=== PATIENT | male | born 1955 | race Caucasian/White ===

== ENCOUNTER 2023-01-22 21:25 | Inpatient (IN) | payer MEDICARE, MEDICAID, SELFPAY ==
[2023-01-22 21:41] LABS: ABG Base Excess 0.4 mmol/L (-2.4-2.3); ABG HCO3 23.6 mmhg (22.0-26.0); ABG Oxygen Saturation 99 % (90-100); ABG PCO2 30.7 mmhg (35.0-45.0); ABG PO2 153.9 mmhg (80-100); ABG TCO2 24.5 mmhg (23-27); Allen's Test Y; Oxygen RA %; Source Right Radial
[2023-01-22 21:55] VITALS: BP 116/87; PULSE 115; RESP 16; TEMP 38.6; O2SAT 100; BMI 16.2
[2023-01-22 22:00] VITALS: BP 116/87; PULSE 118; RESP 28; O2SAT 100
--- NOTE | 2023-01-22 22:08 | HMH.EDFEV ---
Discharge Plan Disposition Chief Complaint: Fever Prescriptions Prescriptions: No Action zinc 100 mg Tablet 220 mg PO HS sennosides [senna] 8.6 mg Tablet 8.06 mg PO DAILY ipratropium-albuterol 0.5 mg-3 mg(2.5 mg base)/3 mL Solution For Nebulization 3 ml INHALATION QID sodium chloride 1 gram Tablet 2 g PO TID metoclopramide HCl 5 mg/5 mL Solution 5 mg PO BID sodium chloride 0.45 % Solution For Nebulization 0.45 ml INHALATION QID budesonide 0.5 mg/2 mL Suspension For Nebulization 0.5 mg INHALATION BID Santyl 250 unit/gram Ointment 250 unit TOPICAL BID bromocriptine 2.5 mg Tablet 2.5 mg PO DAILY Rx Instructions: must administer with a meal/food polyethylene glycol Powder 17 ea miscellaneous DAILY chlorhexidine gluconate 0.12 % Mouthwash 15 ml BUCCAL BID pantoprazole [address] For Susp In Packet 40 mg PO DAILY Calmoseptine 0.44-20.6 % Ointment In Packet 1 applic TOPICAL QID PRN (Reason: skin protection) multivit [id number] 1-dha 18 mg iron- 1 mg-300 mg Capsule 1 cap PO DAILY magnesium oxide 400 mg magnesium Tablet 800 mg PO DAILY acetaminophen 160 mg Powder In Packet 160 mg PO Q6HP PRN (Reason: Pain) Clinical Impressions Clinical Impression: Acute UTI (urinary tract infection), HCAP (healthcare-associated pneumonia), SIRS (systemic inflammatory response syndrome), Acute delirium, Elevated troponin Discharge ED Provider: Shayla (ED)Chad Fever HPI General Chief Complaint: Fever Stated Complaint: Elevated WBC & Potassium Time Seen by Provider: 01/22/23 22:08 Mode of Arrival: EMS Source of Information: Relative, EMS and Medical Record Limitations: Language Barrier Description of Symptoms (Recalled from ER Triage Doc. by RN): Per alf staff, patient was sent to er per family request because pt had an elevated potassium and wbc. Per ems, patient was brought in because family requested evaluation because patient is not making eye contact like usual and thye were worried about his mentation. History of Present Illness HPI Narrative: pt sent from [facility] with altered mental status complaint: fever and weakness Onset (ago): hour(s) Related Data Home Medications Medication Instructions Recorded Confirmed acetaminophen 160 mg oral powder 160 mg PO Q6HP PRN Pain 01/22/23 01/22/23 packet bromocriptine 2.5 mg tablet 2.5 mg PO DAILY parkinsons 01/22/23 01/22/23 budesonide 0.5 mg/2 mL suspension 0.5 mg inhalation BID trach care 01/22/23 01/22/23 for nebulization chlorhexidine gluconate 0.12 % 15 ml buccal BID thrush 01/22/23 01/22/23 mouthwash collagenase clostridium histo. 250 250 unit topical BID Supplement 01/22/23 01/22/23 unit/gram topical ointment (Santyl) ipratropium 0.5 mg-albuterol 3 mg 3 ml inhalation QID shortness of 01/22/23 01/22/23 (2.5 mg base)/3 mL nebulization air soln magnesium oxide 800 mg PO DAILY constipation 01/22/23 01/22/23 menthol 0.44 %-zinc oxide 20.6 % 1 applic topical QID PRN skin 01/22/23 01/22/23 topical ointment in packet protection (Calmoseptine) metoclopramide HCl 5 mg/5 mL oral 5 mg PO BID constipation 01/22/23 01/22/23 solution multivit no.40-iron 18 mg-folate 1 cap PO DAILY Supplement 01/22/23 01/22/23 comb no.1 1 mg-dha 300 mg capsule pantoprazole 40 mg granules 40 mg PO DAILY GERD 01/22/23 01/22/23 delayed-release for susp in packet polyethylene glycol 17 ea miscellaneous DAILY 01/22/23 01/22/23 constipation sennosides 8.6 mg tablet (senna) 8.06 mg PO DAILY constipation 01/22/23 01/22/23 sodium chloride 0.45 % for 0.45 ml inhalation QID duoneb 01/22/23 01/22/23 nebulization sodium chloride 1 gram tablet 2 g PO TID electrolytes 01/22/23 01/22/23 zinc 100 mg tablet 220 mg PO HS wound healing 01/22/23 01/22/23 Allergies Allergy/AdvReac Type Severity Reaction Status Date / Time No Known Allergies Allergy Verifi
--- NOTE | 2023-01-22 22:20 | ECG_ITS ---
APPROVED REPORT Exam: Resting ECG HR:123 bpm ECG Measurements Heart Rate 123 AXES AR 128 P 78 QRSd 80 QRS 268 QT 281 T 73 QTc 354 Conclusion SINUS TACHYCARDIA INDETERMINATE AXIS LEFT POSTERIOR FASCICULAR BLOCK [QRS AXIS > 109, INFERIOR Q] ABNORMAL ECG UNCONFIRMED REPORT Electronically signed by : Paulo Salinas MD 01/23/2023 14:05:50
--- NOTE | 2023-01-22 22:20 | XR_ITS ---
PROCEDURE INFORMATION: Exam: XR Chest Exam date and time: 01/22/2023 10:41 PM Age: 67 years old Clinical indication: Fever; Additional info: Fever, wbc elevated TECHNIQUE: Imaging protocol: Radiologic exam of the chest. Views: 1 view. COMPARISON: No relevant prior studies available. FINDINGS: Tubes, catheters and devices: There is a tracheostomy tube in place in satisfactory position. Lungs: No focal consolidation or mass. Minimal subsegmental atelectasis/scarring left costophrenic angle. Pleural spaces: No pleural effusion or pneumothorax. Heart/Mediastinum: Normal heart size. Bones/joints: No acute osseous abnormality. Mild deformity of the right clavicle consistent with healed fracture. IMPRESSION: 1. No acute intrathoracic abnormality. 2. Tracheostomy tube in satisfactory position.
[2023-01-22 22:26] LABS: Microscopic, Urine URINE MICROSCOPIC (MICROSCOPIC)
[2023-01-22 22:30] VITALS: BP 123/77; PULSE 113; RESP 36; O2SAT 99
[2023-01-22 22:32] LABS: Coronavirus 19, PCR Not Detected (NotDetected); Influenza A, PCR Not Detected (NotDetected); Influenza B, PCR Not Detected (NotDetected)
[2023-01-22 22:32] LABS: Basophils # 0.1 K/mm3 (0-0.2); Basophils % 0.4 % (0.1-2.0); Eosinophils % 0.1 % (0.1-12.0); Hematocrit 34.6 % (42.0-52.0); Hemoglobin 10.7 g/dL (14.1-18.0); Lymphocytes % 7.7 % (10-50); Mean Corpuscular Volume 83.8 fl (80-94); Mean Platelet Volume 7.4 fl (7.4-10.4); Monocytes # 1.1 K/mm3 (0.1-1.0); Monocytes % 4.3 % (1.7-9.3); Neutrophils # 22.7 K/mm3 (1.8-7.8); Neutrophils % 87.5 % (37.0-80.0); Red Blood Count 4.13 M/mm3 (4.60-6.20); Red Cell Distribution Width 18.5 % (11.5-17.5); White Blood Count 25.9 K/mm3 (4.8-10.8)
[2023-01-22 22:33] LABS: Platelet Count 1023 K/mm3 (142-424)
[2023-01-22 22:37] LABS: Appearance,Urine SL CLOUDY (Clear); Bilirubin,Urine Negative (Negative); Blood, Urine 1+ (Negative); Color,Urine YELLOW (Yellow); Glucose,Urine (UA) Negative (Negative); Ketones,Urine Negative (Negative); Leukocyte Esterase,Urine 3+ (Negative); Nitrate,Urine POSITIVE (Negative); PH,Urine 8.5 (5.0-8.5); Protein,Urine TRACE (Negative); Specific Gravity, Urine 1.015 (1.005-1.030); Urobilinogen,Urine 0.2 EU/dl (0.2)
[2023-01-22 22:38] LABS: Lactic Acid 1.5 mmol/L (0.7-2.1)
[2023-01-22 22:39] LABS: Alanine Aminotransferase 36 U/L (12-78); Albumin Level 2.8 g/dl (3.5-5.0); Albumin/Globulin Ratio 0.8 (1.1-1.8); Alkaline Phosphatase 167 U/L (38-126); Anion Gap 6.1 mEq/L (5-15); Aspartate Amino Transferase 41 U/L (17-59); Bilirubin,Total 0.4 mg/dl (0.2-1.3); Blood Urea Nitrogen 27 mg/dl (9-20); Calcium 8.3 mg/dl (8.4-10.2); Carbon Dioxide 26 mmol/L (22.0-30.0); Chloride 110 mmol/L (98-107); Creatine Kinase 48 U/L (55-170); Creatinine Clearance Estimated 59 mL/min (50-200); Estimated Glomerular Filt Rate 113 ml/min (>60); GFR (African American) 137 ML/MIN (>60); Globulin 3.4 g/dL (1.3-3.2); Glucose 136 mg/dl (74-100); Magnesium 2.3 mg/dl (1.6-2.3); Potassium 5.1 mmoL/L (3.5-5.1); Sodium 137 mmol/L (136-145); Total Protein,Serum 6.2 g/dl (6.3-8.2)
--- NOTE | 2023-01-22 22:41 | PC.NURSE ---
Spoke with daughter at bedside. Per daughter, she went to check on her father today and he wasn't making eye contact. daughter states that typically her father will shake his head and respond to her that way but today was unable to maintain eye contact. Daughter states that he had a hemorrhagic stroke in september and was discharged from the hospital to an ltach and was sent to [place] between 2-3 weeks ago.
[2023-01-22 22:44] LABS: C-Reactive Protein 135.1 mg/L (0-4)
[2023-01-22 22:51] LABS: Bacteria,Urine 4+ /lpf; Calcium Oxalate Crystals,Urine Trace /lpf; WBC,Urine 50-100 #/hpf (0-3)
[2023-01-22 22:55] LABS: Procalcitonin 0.402 ng/mL (0.0-2.0); Troponin I 0.26 ng/ml (0.00-0.034)
--- NOTE | 2023-01-22 22:55 | PC.NURSE ---
Dr. Mcguire notified of critical troponin of 0.26
[2023-01-22 22:58] LABS: Erythrocyte Sedimentation Rate 120 mm/hr (0-20)
[2023-01-22 23:00] VITALS: BP 135/83; PULSE 107; RESP 35; O2SAT 100
[2023-01-22 23:45] VITALS: BP 135/83; PULSE 107; RESP 18; TEMP 37.2; O2SAT 100
[2023-01-23] VITALS (13 sets, daily range): BP systolic 101–126; BP diastolic 54–70; PULSE 72–110; RESP 16–24; TEMP 36.4–37.2; O2SAT 96–99; BMI 16.6
--- NOTE | 2023-01-23 00:13 | PC.NURSE ---
pt arrived to floor at this time
--- NOTE | 2023-01-23 01:11 | PC.NURSE ---
coccyx area coccyx coccyx right hip right hip right foot right foot back side
[2023-01-23 02:16] LABS: Troponin I 0.18 ng/ml (0.00-0.034)
--- NOTE | 2023-01-23 04:28 | PC.NURSE ---
pt responsive only to touch, pt is non verbal and will not open eyes, pt will frown when touching forehead and eyebrows, right pupil dilated in which pts daughter states his right eye has been that way r/t eye injury, pt noted to have mottling to lower extremities in knee areas more noticeable, right extremity more than left in which daughter states pt has history of dvt's and concerned pt has clot in that extremity again, pt with tracheostomy and requires suctioning intermittantly for thick white/green secretions noted, trach mask in place with humidified 02 at 8L/35% with 02 sats 97-99%; pt with stage 2 wounds to right hip and coccyx area, both wounds with new pressure dressings applied, see wound pics, f/c to bsd with cloudy urine with sediment noted, g-tube in place to left side of abd with dressing in place, small amount of greenish colored thick exudate noted on dressing around t-tube, pt afebrile this shift, v/s remain stable at this time, telemetry reveals sinus tach. no acute distress at this time. pt turned from back to left side due to pressure area on right hip area, heel protectors in place.
[2023-01-23 07:28] LABS: Eosinophils # 0.1 K/mm3 (0.0-0.4); Eosinophils % 0.7 % (0.1-12.0); Mean Corpuscular Hemoglobin 26.2 pg (27.0-31.2); Monocytes # 0.7 K/mm3 (0.1-1.0); Monocytes % 3.4 % (1.7-9.3)
[2023-01-23 07:30] LABS: Chloride 112 mmol/L (98-107); Potassium 4.3 mmoL/L (3.5-5.1); Sodium 140 mmol/L (136-145)
[2023-01-23 07:33] LABS: Blood Urea Nitrogen 26 mg/dl (9-20); Creatinine Clearance Estimated 60 mL/min (50-200); Estimated Glomerular Filt Rate 135 ml/min (>60); GFR (African American) 163 ML/MIN (>60)
[2023-01-23 07:34] LABS: Anion Gap 8.3 mEq/L (5-15); Calcium 8.4 mg/dl (8.4-10.2); Carbon Dioxide 24 mmol/L (22.0-30.0); Glucose 110 mg/dl (74-100)
[2023-01-23 07:35] LABS: Basophils # 0.1 K/mm3 (0-0.2); Basophils % 0.3 % (0.1-2.0); Hematocrit 31.4 % (42.0-52.0); Lymphocytes # 1.8 K/mm3 (0.7-4.5); Lymphocytes % 8.7 % (10-50); Mean Corpuscular HGB Conc 30.7 g/dL (31.8-35.4); Mean Corpuscular Volume 85.3 fl (80-94); Mean Platelet Volume 7.7 fl (7.4-10.4); Neutrophils # 17.4 K/mm3 (1.8-7.8); Neutrophils % 86.9 % (37.0-80.0); Platelet Count 899 K/mm3 (142-424); Red Blood Count 3.68 M/mm3 (4.60-6.20); Red Cell Distribution Width 18.4 % (11.5-17.5)
[2023-01-23 07:37] LABS: Hemoglobin 9.6 g/dL (14.1-18.0)
[2023-01-23 07:38] LABS: MANUAL DIFFERENTIAL MANUAL DIFFERENTIAL (MANUAL DIFF)
[2023-01-23 07:48] LABS: Lymphocytes % 16 % (10-50); Monocytes % 5 % (2-9); Neutrophils % 79 % (42-76); Total Cells Counted 100
[2023-01-23 07:49] LABS: Anisocytosis 1+; Hypochromasia 1+; Ovalocytes 1+; Platelet Estimate Marked Increase
--- NOTE | 2023-01-23 08:36 | EXP.PHA.CONS ---
Pharmacy Consult Date: 01/23/23 Time: 08:36 Referring provider: DR BOOKER Reason for Consult:: VANCOMYCIN DOSING CONSULT Allergies Allergy/AdvReac Type Severity Reaction Status Date / Time No Known Allergies Allergy Verified 01/22/23 22:04 Home Medications Medication Instructions Recorded Confirmed Type acetaminophen 160 mg oral powder 160 mg PO Q6HP PRN Pain 01/22/23 01/22/23 History packet bromocriptine 2.5 mg tablet 2.5 mg PO DAILY parkinsons 01/22/23 01/22/23 History budesonide 0.5 mg/2 mL suspension 0.5 mg inhalation BID trach care 01/22/23 01/22/23 History for nebulization chlorhexidine gluconate 0.12 % 15 ml buccal BID thrush 01/22/23 01/22/23 History mouthwash collagenase clostridium histo. 250 250 unit topical BID Supplement 01/22/23 01/22/23 History unit/gram topical ointment (Santyl) ipratropium 0.5 mg-albuterol 3 mg 3 ml inhalation QID shortness of 01/22/23 01/22/23 History (2.5 mg base)/3 mL nebulization air soln magnesium oxide 800 mg PO DAILY constipation 01/22/23 01/22/23 History menthol 0.44 %-zinc oxide 20.6 % 1 applic topical QID PRN skin 01/22/23 01/22/23 History topical ointment in packet protection (Calmoseptine) metoclopramide HCl 5 mg/5 mL oral 5 mg PO BID constipation 01/22/23 01/22/23 History solution multivit no.40-iron 18 mg-folate 1 cap PO DAILY Supplement 01/22/23 01/22/23 History comb no.1 1 mg-dha 300 mg capsule pantoprazole 40 mg granules 40 mg PO DAILY GERD 01/22/23 01/22/23 History delayed-release for susp in packet polyethylene glycol 17 ea miscellaneous DAILY 01/22/23 01/22/23 History constipation sennosides 8.6 mg tablet (senna) 8.06 mg PO DAILY constipation 01/22/23 01/22/23 History sodium chloride 0.45 % for 0.45 ml inhalation QID duoneb 01/22/23 01/22/23 History nebulization sodium chloride 1 gram tablet 2 g PO TID electrolytes 01/22/23 01/22/23 History zinc 100 mg tablet 220 mg PO HS wound healing 01/22/23 01/22/23 History New Prescriptions to Start Prescriptions: Height: 1.88 m Weight: 58.786 kg Laboratory Results:: Laboratory Results - last 24 hr 01/22/23 21:30: SARS-CoV-2 (PCR) Not detected, Influenza A Untype (PCR) Not detected, Influenza Type B (PCR) Not detected 01/22/23 21:39: Specimen Source Right radial, O2 % Ra, ABG pH 7.50 H, ABG pCO2 30.7 L, ABG pO2 153.9 H, ABG HCO3 23.6, ABG Total CO2 24.5, ABG O2 Saturation 99, ABG Base Excess 0.4, Ranjan Test Y 01/22/23 21:43: WBC 25.9 H*, RBC 4.13 L, Hgb 10.7 L, Hct 34.6 L, MCV 83.8, MCH 26.0 L, MCHC 31.0 L, RDW 18.5 H, Plt Count 1023 H*, MPV 7.4, Neut % (Auto) 87.5 H, Lymph % (Auto) 7.7 L, Andrews % (Auto) 4.3, Eos % (Auto) 0.1, Baso % (Auto) 0.4, Neut # (Auto) 22.7 H, Lymph # (Auto) 2.0, [place] # (Auto) 1.1 H, Eos # (Auto) 0.0, Baso # (Auto) 0.1, ESR 120 H 01/22/23 21:43: Sodium 137, Potassium 5.1, Chloride 110 H, Carbon Dioxide 26, Anion Gap 6.1, BUN 27 H, Creatinine 0.70, Estimated Creat Clear 59, Estimated GFR 113, Est GFR ( Amer) 137, Glucose 136 H, Calcium 8.3 L, Magnesium 2.3, Total Bilirubin 0.4, AST 41, ALT 36, Alkaline Phosphatase 167 H, Total Creatine Kinase 48 L, Troponin I 0.26 H, C-Reactive Protein 135.1 H, Total Protein 6.2 L, Albumin 2.8 L, Globulin 3.4 H, Albumin/Globulin Ratio 0.8 L, Procalcitonin 0.402 01/22/23 21:43: Lactate 1.5 01/22/23 22:00: Urine Color Yellow, Urine Appearance Sl cloudy, Urine pH 8.5, Ur Specific [place] 1.015, Urine Protein Trace, Urine Glucose (UA) Negative, Urine Ketones Negative, Urine Blood 1+, Urine Nitrate Positive, Urine Bilirubin Negative, Urine Urobilinogen 0.2, Ur Leukocyte Esterase 3+ A, Urine RBC 3-5, Urine WBC 50-100, Calcium Oxalate Crystal Trace, Urine Bacteria 4+ 01/23/23 01:40: Troponin I 0.18 H 01/23/23 05:10: Troponin I 0.10 H 01/23/23 06:53: WBC 20.0 H, RBC 3.68 L, Hgb 9.6 L D, Hct 31.4 L, MCV 85.3, MCH 26.2 L, MCHC 30.7 L, RDW 18.4 H, Plt Count 899 H, MPV 7.7, Neut % (Auto) 86.9 H, Lymph % (Auto) 8.7 L, Andrews % (Auto) 3.4, Eos % (Auto
--- NOTE | 2023-01-23 09:04 | EXP.HP ---
History of Present Illness *Admission Date: 01/22/23 *Reason for visit:: Fever, leukocytosis *History of present illness: 67-year-old male, with several month history of significant medical compromise after an episode of respiratory arrest, cardiac arrest related to polysubstance abuse several months ago. Complicated by multiple rounds of pneumonia, subarachnoid hemorrhage, multiple episodes of sepsis. Ended up in the healthcare system and spent several weeks/months at [facility] and ended up with tracheostomy and G-tube. After several weeks there was transferred to an LTAC unit in [place]. Did not make progress and then was transferred to the [facility] here in [place] for ongoing care. He is originally from [facility] and his daughter is very involved in his care and plans to take him home once he is reached PT goals although this seems to be an extremely long-term issue at this point. He has been a [facility] for a couple of weeks, and has been relatively stable. He has been working with PT and OT. He is minimally responsive but there has been some improvement noted per his daughter in regards to communication. He is able to sit up in a Tara chair for several hours at a time and has some arm flickering movement but otherwise is essentially bedbound and immobile. He developed unusual rash yesterday on his legs and arms, and low-grade temperature. CBC was done showing white count greater than 27,000. This was a change for him. Transported to ER for further evaluation. In ER met sepsis criteria and noted to have milky drainage from his tracheostomy. Admitted for probable healthcare acquired pneumonia and sepsis. This morning he is essentially unresponsive as he was when I examined him at the long term last week [facility] Disclaimer: The information contained in this section may have been updated after the patient was seen, as this information can be updated by other users. Medical History (Updated 01/23/23 @ 09:15 by Paulo Salinas MD) Acute pulmonary edema COPD (chronic obstructive pulmonary disease) Dysphagia Elevation of levels of liver transaminase levels Essential hypertension Hemorrhagic stroke History of embolism Pneumonitis due to inhalation of other solids and liquids Surgical History (Updated 01/23/23 @ 09:15 by Paulo Salinas MD) Postsurgical presence of cerebrospinal fluid drainage device Family History (Updated 01/23/23 @ 01:42 by Vanessa [place], RN) No significant family history Social History (Updated 01/23/23 @ 01:44 by Vanessa Bloom RN) Smoking Status: Former smoker alcohol intake: former current occupational status: disabled Travel in the last 8 weeks: None household members: other housing: assisted living facility marital status: diet: other during the past year weight has: decreased > 10 lbs physical activity: none special shade needs: No agree to transfusion: No Review of Systems Review of Systems Review of systems:: unable to obtain Meds Home Medications and Allergies Home Medications Medication Instructions Recorded Confirmed Type acetaminophen 160 mg oral powder 160 mg PO Q6HP PRN Pain 01/22/23 01/22/23 History packet bromocriptine 2.5 mg tablet 2.5 mg PO DAILY parkinsons 01/22/23 01/22/23 History budesonide 0.5 mg/2 mL suspension 0.5 mg inhalation BID trach care 01/22/23 01/22/23 History for nebulization chlorhexidine gluconate 0.12 % 15 ml buccal BID thrush 01/22/23 01/22/23 History mouthwash collagenase clostridium histo. 250 250 unit topical BID Supplement 01/22/23 01/22/23 History unit/gram topical ointment (Santyl) ipratropium 0.5 mg-albuterol 3 mg 3 ml inhalation QID shortness of 01/22/23 01/22/23 History (2.5 mg base)/3 mL nebulization air soln magnesium oxide 800 mg PO DAILY constipation 01/22/23 01/22/23 History menthol 0.44 %-zinc oxide 20.6 % 1 applic topi
--- NOTE | 2023-01-23 09:10 | PC.NURSE ---
Per assisted report, pt's tube feed order is Nutren 2.0 @ 45mls/hr continuous with 235 ml flushes q4hrs
--- NOTE | 2023-01-23 09:22 | DIET.NUTRFU ---
RD consulted for tubefeeding order. Patient is from [facility], he is NPO with TF provided for 100% nutrition. At [facility] he is receiving Nutren 2.0 at 45ml/hr ATC with 235ml flush Q4H. He has skin breakdown, would benefit from Prostat AWC TID for would healing. Will start Nutren 2.0 at 20ml/hr and increase to goal rate of 45ml as tolerated. Start flush of 50ml TID will receiving IVF, once IVF discontinued will increase flush to 225ml every 4 hours. When called [facility] was unable to get a wt hx, he does have low BMI, skin breakdown will review risk of PCM with provider who is more familiar with patient
--- NOTE | 2023-01-23 10:51 | P.CONPHA_ITS ---
Pharmacy Intervention Comments: MEDICATION RECONCILIATION COMPLETE USING MAR FROM [facility].
--- NOTE | 2023-01-23 10:51 | HMH.PHAINT1 ---
Pharmacy Intervention Comments: MEDICATION RECONCILIATION COMPLETE USING MAR FROM [facility].
--- NOTE | 2023-01-23 18:22 | PC.NURSE ---
[facility] called and asked for update on pt. Pt is currently resting on (L) side. Turned Q2H. Responds to questions with blinking and nodding head. Trach collar with O2 @ 5L 28%. F/C draining to bedside with purulent urine. Drainage bag changed. Pt is sinus to sinus tach on telemetry. DSGs to coccyx and (R) hip in place. Family at bedside.
[2023-01-23 18:44] LABS: POC Glucose,Bedside 86 (70-110)
[2023-01-24] VITALS (9 sets, daily range): BP systolic 116–145; BP diastolic 61–79; PULSE 73–90; RESP 16–20; TEMP 36.4–36.8; O2SAT 96–100; BMI 16.9
[2023-01-24 06:52] LABS: Chloride 114 mmol/L (98-107); Sodium 142 mmol/L (136-145)
[2023-01-24 06:53] LABS: Potassium 3.4 mmoL/L (3.5-5.1)
[2023-01-24 06:55] LABS: Basophils # 0.1 K/mm3 (0-0.2); Blood Urea Nitrogen 20 mg/dl (9-20); Creatinine Clearance Estimated 62 mL/min (50-200); Eosinophils # 0.2 K/mm3 (0.0-0.4); Estimated Glomerular Filt Rate 215 ml/min (>60); GFR (African American) 260 ML/MIN (>60); Monocytes # 0.4 K/mm3 (0.1-1.0)
[2023-01-24 06:56] LABS: Anion Gap 7.4 mEq/L (5-15); Calcium 8.2 mg/dl (8.4-10.2); Carbon Dioxide 24 mmol/L (22.0-30.0); Glucose 78 mg/dl (74-100)
[2023-01-24 07:03] LABS: Basophils % 0.6 % (0.1-2.0); Eosinophils % 2.2 % (0.1-12.0); Hematocrit 27.9 % (42.0-52.0); Lymphocytes # 1.9 K/mm3 (0.7-4.5); Lymphocytes % 20.2 % (10-50); Mean Corpuscular HGB Conc 29.5 g/dL (31.8-35.4); Mean Corpuscular Hemoglobin 25.9 pg (27.0-31.2); Mean Corpuscular Volume 87.5 fl (80-94); Mean Platelet Volume 7.4 fl (7.4-10.4); Monocytes % 4.1 % (1.7-9.3); Neutrophils # 6.8 K/mm3 (1.8-7.8); Neutrophils % 72.9 % (37.0-80.0); Platelet Count 826 K/mm3 (142-424); Red Blood Count 3.19 M/mm3 (4.60-6.20); Red Cell Distribution Width 18.2 % (11.5-17.5); White Blood Count 9.4 K/mm3 (4.8-10.8)
[2023-01-24 07:06] LABS: Hemoglobin 8.2 g/dL (14.1-18.0)
--- NOTE | 2023-01-24 07:35 | PC.NURSE ---
Trach care performed at this time.
--- NOTE | 2023-01-24 08:26 | SW/DCPLANNER ---
Addendum entered by Iesha Champion 01/31/23 09:23: Patient will return to [facility] today: I have updated Liliana. Patient will require a COVID swab prior to returning. Addendum entered by Iesha Champion 01/27/23 10:54: Updated patient information has been faxed to Liliana long/ [facility]. Addendum entered by [facility] 01/25/23 11:48: Caril lnog/ [facility] stated that she has reviewed patient information and does not meet criteria for their facility at this time. I have updated daughter and she is fine with returning to [facility] once medically stable for discharge. Addendum entered by [facility] 01/25/23 08:21: Patient's daughter (Bri) has expressed an interest in [place] for this patient. I will fax patient information to Carli long/ [facility] to review. Daughter also stated that if [facility] is unable to accept patient she would prefer to return to [facility]. Discharge date is unknown at this time. Original Note: This patient currently resides at [facility] level of care. I have followed up with Liliana at [facility] and faxed updated patient information at this time.
--- NOTE | 2023-01-24 08:27 | XR_ITS ---
FINAL REPORT CLINICAL HISTORY: Persistent cough FINDINGS: A portable view of the chest was obtained. Comparison is made to a prior exam dated 01/22/2023. There is been no change in the tracheostomy tube. Cardiac and mediastinal silhouettes are within normal limits. There are changes of emphysema. There may be mild right perihilar opacity. The lungs are otherwise clear. There is no pleural effusion or pneumothorax. IMPRESSION: May be mild right perihilar opacity, lungs are otherwise clear. Recommend upright PA and lateral radiographs when patient is able to tolerate. Reviewed, Interpreted and Dictated by Angelique Watson MD Transcribed by Zeenat Pino Authenticated and [facility]
--- NOTE | 2023-01-24 08:29 | EXP.ACUTE.PN ---
Subjective *Date: 01/24/23 *Time: 08:29 Interval history: Patient is remained stable overnight. His white blood cell count has improved nicely. Tube feeds remain off. Microbiology cultures reviewed, gram-negative rods from urine and tracheal culture. Medical Exam Vital signs and Labs for Last 24 Hours: Vital Signs Temp Pulse Pulse Resp BP Pulse Ox FiO2 01/24/23 07:36 98.3 F 73 18 131/70 98 01/24/23 04:00 84 01/24/23 04:00 97.6 F 82 16 116/61 99 01/24/23 00:00 90 01/23/23 20:00 80 01/24/23 00:00 87 16 127/64 100 01/23/23 23:40 28 01/23/23 19:45 97.9 F 81 16 103/54 L 98 01/23/23 15:06 97.6 F 82 16 107/56 L 99 01/23/23 12:00 80 01/23/23 12:57 96 28 01/23/23 10:53 98.2 F 96 H 17 119/70 98 Intake and Output 01/23/23 01/24/23 01/24/23 19:59 03:59 11:59 Intake Total 0 / 0 Output Total 525 / 1325 300 / 1325 500 / 1325 Balance -525 / -1325 -300 / -1325 -500 / -1325 Intake: Intake, Oral Amount 0 / 0 Output: Output, Urine Amount 400 / 400 Output, Urine Amount (Catheter) 125 / 925 300 / 925 500 / 925 Gunter 125 / 925 300 / 925 500 / 925 Other: Number of Unmeasured Voids 0 Weight 132 lb 9 oz Patient Weight 01/24/23 11:59 Weight 132 lb 9 oz Laboratory Results - last 24 hr 01/22/23 22:00: Urine Color Yellow, Urine Appearance Sl cloudy, Urine pH 8.5, Ur Specific [place] 1.015, Urine Protein Trace, Urine Glucose (UA) Negative, Urine Ketones Negative, Urine Blood 1+, Urine Nitrate Positive, Urine Bilirubin Negative, Urine Urobilinogen 0.2, Ur Leukocyte Esterase 3+ A, Urine RBC 3-5, Urine WBC 50-100, Calcium Oxalate Crystal Trace, Urine Bacteria 4+ 01/23/23 18:36: POC Glucose 86 01/24/23 06:20: WBC 9.4 D, RBC 3.19 L, Hgb 8.2 L D, Hct 27.9 L, MCV 87.5, MCH 25.9 L, MCHC 29.5 L, RDW 18.2 H, Plt Count 826 H, MPV 7.4, Neut % (Auto) 72.9, Lymph % (Auto) 20.2, [place] % (Auto) 4.1, Eos % (Auto) 2.2, Baso % (Auto) 0.6, Neut # (Auto) 6.8, Lymph # (Auto) 1.9, [place] # (Auto) 0.4, Eos # (Auto) 0.2, Baso # (Auto) 0.1 01/24/23 06:20: Sodium 142, Potassium 3.4 L D, Chloride 114 H, Carbon Dioxide 24, Anion Gap 7.4, BUN 20, Creatinine 0.40 L D, Estimated Creat Clear 62, Estimated GFR 215, Est GFR ( Amer) 260 D, Glucose 78 D, Calcium 8.2 L I & O for Labs for Last 24 Hours: Intake & Output 01/21/23 01/22/23 01/23/23 01/24/23 11:59 11:59 11:59 11:59 Intake Total 711 / 711 0 / 0 Output Total 1225 / 1225 1325 / 1325 Balance -514 / -514 -1325 / -1325 Weight 129 lb 6.581 oz 132 lb 9 oz Microbiology Reports for the Last 24 Hours: Microbiology 01/22/23 22:00 Sputum - Endotracheal Tube Aspirate Gram Stain - Final 01/22/23 22:00 Sputum - Endotracheal Tube Aspirate Sputum Culture - Preliminary Gram Negative Rods 01/22/23 22:00 Urine,Catheterized Urine Culture - Preliminary Gram Negative Rods Comment:: Patient is responsive to verbal stimuli from nurses, will squeeze hand, wiggle toes and shakes his head no when asked if he is in pain. Does not respond to sternal rub. Pupillary reactivity remains the same as on exam on admission. Rhonchi in chest. Abdomen soft, G-tube site looks good, trach site looks pretty good with minimal drainage. Extremity exam unchanged. Assessment and Plan *Assessment and plan (1) SIRS (systemic inflammatory response syndrome): Status: Acute Category: Medical Code(s): R65.10 - Systemic inflammatory response syndrome (SIRS) of non-infectious origin without acute organ dysfunction (2) HCAP (healthcare-associated pneumonia): Status: Acute Category: Medical Code(s): J18.9 - Pneumonia, unspecified organism (3) Elevated troponin: Status: Acute Category: Medical Code(s): R77.8 - Other specified abnormalities of plasma proteins (4) Hemorrhagic stroke:
--- NOTE | 2023-01-24 09:01 | CA_ITS ---
APPROVED REPORT EXAM: Comprehensive 2D, Doppler, and color-flow Echocardiogram Oil Burner Repairer: ROLAND Haji, RVS Ht: 6 ft 2 in Wt: 132lbs BSA: 1.82 BP: 126/67 mmHg Indications: HAP, Sepsis, Cardiac arrest-1 month ago-drug overdose, tracheostomy, ex-smoker Echo Enhancing Agent Comments: Extremely limited due to patient factors 2D Dimensions Aortic Root 3.23 cm LA Volume 34.20 mL Left Atrium 2.68 cm LA Volume Index 18.80 mL/m2 (M/F) 16-34 LVOT 2.11 cm (M/F) 1.5-2.5 M-Mode Dimensions RVDd 2.22 cm (0.9-2.6) LA Diam 3.19 cm (1.9-4.0) LVDd 4.10 cm (3.5-5.7) Ao Diam 3.48 cm (2.0-3.7) LVDs 2.28 cm (3.5-5.7) IVSd 0.73 cm (0.6-1.1) PWd 0.97 cm (0.6-1.1) EF (Teich) 76.10% EPSs 0.16 cm FS 44.40% EDV (Teich) 74.20 mL ESV (Teich) 17.70 mL LV Diastology E Decel Time 213.00 (160-240 msec) E/A Ratio 0.99 MED E' 7.80 (< 7 cm/sec) MED A' 12.60 cm/s E'/MED E' Ratio 10.40 (>14) LAT E' 7.70 (<10 cm/sec) LAT A' 11.00 cm/s E/LAT E' Ratio 10.53 (>14) Aortic Valve LVOT Max 76.00 (70-110 cm/s) LVOT VTI 15.98 cm AoV Peak Gene. 107.00 (50-130 cm/s) AO Peak GR. 4.60 mmHg AO Mean GR. 2.30 (<5 mmHg) AO VTI 20.81 (18-25 cm) EZIO (VTI) 2.69 (2.5-4.5 cm2) Mitral Valve MV A Velocity 82.00 (40-130 cm/s) E/A Ratio 0.99 MV Decel. Time 213.00 (160-240 ms) MV Mean Gr. 1.40 (<2mmHg) MV PHT 43.00 ms Pulmonary Valve PV Peak Velocity 91.00 (50-150 cm/s) NJ End VMAX 186.00 cm/s Tricuspid Valve TR P. Velocity 246.00 cm/s RAP Estimate 10.00 mmHg RVSP 34.30 mmHg Left Ventricle Left atrium is mildly enlarged, left ventricle is normal size, mild concentric left ventricular hypertrophy, estimated ejection fraction 50% with no regional wall motion abnormality, grade 1 diastolic dysfunction seen without tissue Doppler evidence of raise left atrial pressure. Right Ventricle Right-sided chambers are not well visualized. Aortic Valve Aortic valve is minimally thickened and fibrosed there is no aortic stenosis aortic insufficiency. Mitral Valve Mitral valve is grossly normal, there is trace mitral regurgitation. Tricuspid Valve Tricuspid valve grossly normal, there is trace tricuspid regurgitation, tricuspid regurgitation jet velocity is inadequate for calculation of the right ventricular systolic pressure. Pulmonic Valve Pulmonic valve is poorly visualized. Great Vessels Aortic root is normal size. Inferior vena cava is poorly visualized. Pericardium No significant pericardial effusion noted. Conclusion 1. Technically difficult study. Mildly enlarged left atrium, normal left ventricular size, estimated ejection fraction 55% with no regional wall motion abnormality, grade 1 diastolic dysfunction seen without tissue Doppler evidence of raise left atrial pressure. 2. Trace mitral and tricuspid regurgitation. 3. No significant pericardial effusion noted. 4. Inferior vena cava is poorly visualized. Electronically signed by : Magen Maria MD 01/24/2023 12:54:35
--- NOTE | 2023-01-24 11:16 | HMH.PTWOUND ---
Rehab Inpt Wound Evaluation Rehab IP Wound Evaluation Start: 01/23/23 08:47 Freq: DAILY Status: Active Protocol: Document 01/24/23 09:30 PHORNE (Rec: 01/24/23 11:16 PHORNE [id number]) Rehab PT Wound Assessment Subjective Subjective 67 yowm adm to [facility] [place] [facility] [place] with HAP and sepsis. He presents at baseline which limited at best. He appears alert to person, but is unable to speak at t his time. Has trach and PEG with tube feeds, requires dependen t assist with all mobility and has limited command following. He presents with sacral wound that was present on admission with several other small areas of concern noted. Wound Sacrum Wound Type Pressure Ulcer Is This a Chronic Wound Yes Wound Staging Unstageable Query Text:Stage I - Unbroken, red skin, no blanching. Stage II - Skin broken, superficial skin loss involving epidermis alone or also dermis. Partial loss of skin layers. Stage III - Pressure area involves epidermis, dermis and subcutaneous tissue, full thickness skin loss. Stage IV - Pressure area involves epidermis, subcutaneous tissue, bone and other supportive tissue. Full thickness skin loss with extensive destruction of underlying tissue and structures. Wound Length (cm) 5.0 Wound Width (cm) 8.5 Wound Depth (cm) 0.1 Wound Bed Appearance [place],Yellow Percentage Granulated (%) 80 Percentage of Slough (%) 20 Wound Margins Description Well Defined Surrounding Tissue Appearance [place],Purple Wound Drainage Description Serous,Purulent Drainage Amount Small Drainage Odor No Odor Wound Topical Solution/Irrigant Saline Irrigant Primary Dressing Composite Comment optifoam gentle sacrum Wound Debridement Method Mechanical Wound Debridement Amount of Tissue Minimal Removed Dressing Change Patient Tolerance Tolerated Well Plan/Recommendation Comment Continue [facility] [place] dressing changes as above with appropriate foam dressing. Mild amts of slough appear to be autolytically
--- NOTE | 2023-01-24 14:53 | DIET.NUTRFU ---
Addendum entered by Joi Alarcon RD, LD 01/24/23 15:44: reglan, protonix and zofran are also being provided Original Note: Tubefeeding was started and 94ml provided, nursing checked residuals 14:55 at 50ml. TF now on hold. Will also put prostat on hold. Placement was checked and will reattempt TF later today. He continues on IVF to meet hydration needs.
--- NOTE | 2023-01-24 16:53 | PC.NURSE ---
PT IS RESTING IN BED. ALERT TO SELF ONLY. PT IS NONVERBAL HOWEVER WILL FOLLOW SIMPLE COMMANDS. TUBE FEEDINGS STARTED THIS SHIFT AT 1000. NUTREN 20 ML/HR TO START. PT HAD 50 ML'S RESIDUAL AT 1430. TUBE FEEDINGS STOPPED. PT STILL HAD 40 ML'S RESIDUAL AT 1600. WILL RECHECK RESIDUAL AT 1800. TRACH HAS BEEN SUCTIONED NEEDED THIS SHIFT. TURNED AND REPOSITIONED IN BED FREQUENTLY. ORAL CARE PROVIDED. PT HAD A SMALL BOWEL MOVEMENT. NEW DRESSING APPLIED TO COCCY[employer]. WILL CONTINUE TO MONITOR.
[2023-01-25] VITALS (9 sets, daily range): BP systolic 123–198; BP diastolic 67–90; PULSE 72–122; RESP 16–36; TEMP 36.4–38.7; O2SAT 93–98; BMI 17.1
--- NOTE | 2023-01-25 06:31 | PC.NURSE ---
PT HAS NOT SLEPT MUCH THIS SHIFT. PT REMAINS IN 5L AND IS TOLERATING THAT WELL. PT HAS NOT HAD VERY GOOD URINE OUTPUT THIS SHIFT WITH ABOUT 150ML'S OUT. PT'S BP HAS CONTINUED TO RISE THIS SHIFT WELL HIS HEART RATE. MD DOPE EDGER AWARE. NEW ORDERS RECIEVED AND CARRIED OUT. PT'S GASTRIC RESIDUALS HAVE BEEN BETWEEN 0-30 ML THIS SHIFT. DENIES ANY PAIN AT THIS TIME.
[2023-01-25 07:37] LABS: Basophils % 0.3 % (0.1-2.0); Eosinophils # 0.1 K/mm3 (0.0-0.4); Eosinophils % 0.4 % (0.1-12.0); Lymphocytes # 1.5 K/mm3 (0.7-4.5); Neutrophils % 83.2 % (37.0-80.0)
[2023-01-25 07:39] LABS: Chloride 116 mmol/L (98-107); Potassium 3.1 mmoL/L (3.5-5.1); Sodium 145 mmol/L (136-145); Vancomycin,Peak 36.6 ug/ml (11-39)
--- NOTE | 2023-01-25 07:40 | EXP.ACUTE.PN ---
Subjective *Date: 01/25/23 *Time: 07:40 Interval history: Several developments overnight and yesterday. Yesterday patient was able to demonstrate much more communication that I have seen him before, with eye blinking, head shaking and response to questions and moving his toes and hands to command. He denied pain. Unfortunately tube feedings were not able to be continued because of high residuals and his gastric residual checks. Overnight he has had some documented high heart rates and his blood pressure has been well up and he had a low-grade fever. This morning he is slightly less responsive but his eyes are open and he does blink with commands and seems to acknowledge people in the room by moving his eyes. He does not follow commands for me this morning Cultures have been reviewed showing Pseudomonas in urine and sputum, gram-negative rods in blood which have yet to be identified. Medical Exam Vital signs and Labs for Last 24 Hours: Vital Signs Temp Pulse Pulse Resp BP Pulse Ox FiO2 01/25/23 04:00 120 H 01/25/23 04:00 99.1 F 122 H 36 H 198/90 H 93 L 01/24/23 23:00 96 28 01/25/23 00:00 110 H 01/24/23 20:00 80 01/25/23 00:00 98.5 F 118 H 16 177/85 H 94 L 01/24/23 20:00 98.0 F 82 18 143/79 H 97 01/24/23 15:52 97.9 F 82 20 133/79 01/24/23 12:00 90 01/24/23 11:15 97.9 F 90 18 145/78 H 98 01/24/23 08:00 83 Intake and Output 01/24/23 01/25/23 01/25/23 19:59 03:59 11:59 Intake Total 0 / 0 Output Total 0 / 100 0 / 100 100 / 100 Balance 0 / -100 0 / -100 -100 / -100 Intake: Intake, Oral Amount 0 / 0 Output: Output, Urine Amount 0 / 100 0 / 100 100 / 100 Other: Number of Unmeasured Voids 1 0 1 Number of Bowel Movements 1 Weight 133 lb 3 oz Patient Weight 01/25/23 11:59 Weight 133 lb 3 oz Laboratory Results - last 24 hr 01/22/23 22:00: Urine Color Yellow, Urine Appearance Sl cloudy, Urine pH 8.5, Ur Specific [place] 1.015, Urine Protein Trace, Urine Glucose (UA) Negative, Urine Ketones Negative, Urine Blood 1+, Urine Nitrate Positive, Urine Bilirubin Negative, Urine Urobilinogen 0.2, Ur Leukocyte Esterase 3+ A, Urine RBC 3-5, Urine WBC 50-100, Calcium Oxalate Crystal Trace, Urine Bacteria 4+ 01/25/23 02:05: Vancomycin Trough 12.0 H I & O for Labs for Last 24 Hours: Intake & Output 01/22/23 01/23/23 01/24/23 01/25/23 11:59 11:59 11:59 11:59 Intake Total 711 / 711 0 / 0 0 / 0 Output Total 1225 / 1225 2525 / 2525 100 / 100 Balance -514 / -514 -2525 / -2525 -100 / -100 Weight 129 lb 6.581 oz 132 lb 9 oz 133 lb 3 oz Microbiology Reports for the Last 24 Hours: Microbiology 01/22/23 21:43 Blood Blood Culture - Preliminary Gram Negative Rods 01/22/23 22:00 Urine,Catheterized Urine Culture - Final Pseudomonas aeruginosa 01/22/23 22:00 Sputum - Endotracheal Tube Aspirate Gram Stain - Final 01/22/23 22:00 Sputum - Endotracheal Tube Aspirate Sputum Culture - Final Pseudomonas aeruginosa 01/22/23 21:43 Blood Blood Culture - Preliminary NO GROWTH AFTER 48 HOURS Comment:: Please see above notes are he has neurologic status. His lungs have reduced air movement but at baseline. Heart rate is regular. At the time of my exam is in the low 80s. His abdomen is slightly full, G-tube site looks good. Extremities are unchanged. Assessment and Plan *Assessment and plan (1) SIRS (systemic inflammatory response syndrome): Status: Acute Category: Medical Code(s): R65.10 - Systemic inflammatory response syndrome (SIRS) of non-infectious origin without acute organ dysfunction (2) HCAP (healthcare-associated pneumonia): Status: Acute Category: Medical Code(s): J18.9 - Pneumonia, unspecified organism (3) Elevated troponin: Status:
[2023-01-25 07:41] LABS: Basophils # 0.1 K/mm3 (0-0.2); Lymphocytes % 11.3 % (10-50); Mean Corpuscular HGB Conc 31.4 g/dL (31.8-35.4); Mean Corpuscular Hemoglobin 26.5 pg (27.0-31.2); Mean Corpuscular Volume 84.3 fl (80-94); Mean Platelet Volume 8.1 fl (7.4-10.4); Monocytes # 0.6 K/mm3 (0.1-1.0); Monocytes % 4.7 % (1.7-9.3); Neutrophils # 11.2 K/mm3 (1.8-7.8); Platelet Count 927 K/mm3 (142-424); Red Blood Count 3.56 M/mm3 (4.60-6.20); White Blood Count 13.5 K/mm3 (4.8-10.8)
[2023-01-25 07:42] LABS: Anion Gap 13.1 mEq/L (5-15); Blood Urea Nitrogen 24 mg/dl (9-20); Calcium 8.5 mg/dl (8.4-10.2); Carbon Dioxide 19 mmol/L (22.0-30.0); Creatinine Clearance Estimated 62 mL/min (50-200); Estimated Glomerular Filt Rate 113 ml/min (>60); GFR (African American) 137 ML/MIN (>60); Glucose 81 mg/dl (74-100); Hemoglobin 9.4 g/dL (14.1-18.0)
--- NOTE | 2023-01-25 07:57 | DIET.NUTRFU ---
Spoke to nursing this morning, tubefeeding still on hold. Had noted residuals last night at 30ml. Prostat was given last night, now on hold. Reglan increased and IV bolus provided. Provider wanted to continue to hold TF for now, patient is non-verbal. Attempted to ask patient if he was experiencing nausea, previous was able to respond by knotting head but did not today. He is also on zofran PRN. Labs reviewed and ABT tx continued. BM noted yesterday. Will continue to monitor
--- NOTE | 2023-01-25 09:22 | EXP.PHA.CONS ---
Pharmacy Consult Date: 01/25/23 Time: 09:22 Referring provider: DR BOOKER Reason for Consult:: VANCOMYCIN PEAK AND TROUGH LEVEL OBTAINED Allergies Allergy/AdvReac Type Severity Reaction Status Date / Time No Known Allergies Allergy Verified 01/22/23 22:04 Home Medications Medication Instructions Recorded Confirmed Type acetaminophen 160 mg oral powder 160 mg PO Q6HP PRN MILD TO 01/22/23 01/22/23 History packet MODERATE PAIN bromocriptine 2.5 mg tablet 2.5 mg PO DAILY parkinsons 01/22/23 01/22/23 History budesonide 0.5 mg/2 mL suspension 0.5 mg inhalation BID Breathing 01/22/23 01/22/23 History for nebulization problems chlorhexidine gluconate 0.12 % 15 ml PO BID thrush 01/22/23 01/23/23 History mouthwash collagenase clostridium histo. 250 0 unit topical BID wound care 01/22/23 01/23/23 History unit/gram topical ointment (Santyl) ipratropium 0.5 mg-albuterol 3 mg 3 ml inhalation Q6HP PRN breathing 01/22/23 01/23/23 History (2.5 mg base)/3 mL nebulization problems soln magnesium oxide 800 mg PO DAILY Supplement 01/22/23 01/22/23 History menthol 0.44 %-zinc oxide 20.6 % 1 applic topical TID wound care 01/22/23 01/23/23 History topical ointment in packet (Calmoseptine) metoclopramide HCl 5 mg/5 mL oral 5 mg PO BID constipation 01/22/23 01/22/23 History solution pantoprazole 40 mg granules 40 mg PO DAILY acid reflux 01/22/23 01/22/23 History delayed-release for susp in packet sennosides 8.6 mg tablet (senna) 8.6 mg PO DAILY constipation 01/22/23 01/23/23 History sodium chloride 1 gram tablet 2 g PO TID electrolytes 01/22/23 01/22/23 History geriatric multivitamin-min 1 tab PO DAILY Supplement 01/23/23 01/23/23 History ipratropium 0.5 mg-albuterol 3 mg 3 ml inhalation TID Breathing 01/23/23 01/23/23 History (2.5 mg base)/3 mL nebulization problems soln polyethylene glycol 3350 17 gram 17 g PO DAILY constipation 01/23/23 01/23/23 History oral powder packet (Miralax) scopolamine base 1 mg over 3 days 1 patch transdermal Q72H secretions 01/23/23 01/23/23 History transdermal patch (Transderm-Scop) sodium chloride 3 % for 4 ml inhalation BID Breathing 01/23/23 01/23/23 History nebulization problems zinc sulfate 220 mg capsule 220 mg PO HS wound care 01/23/23 01/23/23 History New Prescriptions to Start Prescriptions: Height: 1.88 m Weight: 60.413 kg Laboratory Results:: Laboratory Results - last 24 hr 01/22/23 22:00: Urine Color Yellow, Urine Appearance Sl cloudy, Urine pH 8.5, Ur Specific [place] 1.015, Urine Protein Trace, Urine Glucose (UA) Negative, Urine Ketones Negative, Urine Blood 1+, Urine Nitrate Positive, Urine Bilirubin Negative, Urine Urobilinogen 0.2, Ur Leukocyte Esterase 3+ A, Urine RBC 3-5, Urine WBC 50-100, Calcium Oxalate Crystal Trace, Urine Bacteria 4+ 01/25/23 02:05: Vancomycin Trough 12.0 H 01/25/23 06:20: Vancomycin Peak 36.6 01/25/23 06:20: WBC 13.5 H D, RBC 3.56 L, Hgb 9.4 L D, Hct 30.0 L, MCV 84.3, MCH 26.5 L, MCHC 31.4 L, RDW 18.0 H, Plt Count 927 H*, MPV 8.1, Neut % (Auto) 83.2 H, Lymph % (Auto) 11.3, [place] % (Auto) 4.7, Eos % (Auto) 0.4, Baso % (Auto) 0.3, Neut # (Auto) 11.2 H, Lymph # (Auto) 1.5, [place] # (Auto) 0.6, Eos # (Auto) 0.1, Baso # (Auto) 0.1 01/25/23 06:20: Sodium 145, Potassium 3.1 L, Chloride 116 H, Carbon Dioxide 19 L, Anion Gap 13.1, BUN 24 H, Creatinine 0.70 D, Estimated Creat Clear 62, Estimated GFR 113, Est GFR ( Amer) 137 D, Glucose 81, Calcium 8.5 Medical History: Medical History (Updated 01/23/23 @ 09:15 by Paulo Booker MD) Acute pulmonary edema COPD (chronic obstructive pulmonary disease) Dysphagia Elevation of levels of liver transaminase levels Essential hypertension Hemorrhagic stroke History of embolism Pneumonitis due to inhalation of other solids and liquids Assessment and Plan Assessment and plan all Dx Assessment and Plan for all problems:: VANCOMYCIN PEAK AND TROUGH LEVELS OBTAINED. TROUGH: 12.0
--- NOTE | 2023-01-25 09:54 | HMH.OTEV ---
OT Inpatient Evaluation Rehab OT IP Evaluation Start: 01/25/23 07:52 Freq: ONCE Status: Active Protocol: Document 01/25/23 09:48 TETOANGELINE (Rec: 01/25/23 09:54 PAMELLA [id number]) Rehab OT IP Assessment Subjective History 67-year-old male, with several month history of significant medical compromise after an episode of respiratory arrest, cardiac arrest related to polysubstance abuse several months ago. Complicated by multiple rounds of pneumonia, subarachnoid hemorrhage, multiple episodes of sepsis. Ended up in the healthcare system and spent several weeks /months at [facility] and ended up with tracheostomy and G-tube. After several weeks there was transferred to an LTAC unit in [place]. Did not make progress and then was transferred to the [facility] here in [place] for ongoing care. He is originally from [facility] and his daughter is very involved in his care and plans to take him home once he is reached PT goals although this seems to be an extremely long-term issue at this point. He has been a [facility] for a couple of weeks, and has been relatively stable. He has been working with PT and OT. He is minimally responsive but there has been some improvement noted per his daughter in regards to communication. He is able to sit up in a Tara chair for several hours at a time and has some arm flickering movement but otherwise is essentially bedbound and immobile. He developed unusual rash yesterday on his legs and arms
--- NOTE | 2023-01-25 10:09 | HMH.PTEV ---
Physical Therapy Evaluation Rehab PT IP Evaluation Start: 01/25/23 07:51 Freq: ONCE Status: Active Protocol: Document 01/25/23 10:01 TRISH (Rec: 01/25/23 10:08 TRISH [id number]) Subjective/History History History 67 yowm adm to [facility] with HAP and sepsis. He has significant hx of prolonged hospitalization with trach and PEG with tube feeds. Currently he is not following any commands or able to answer any orientation questions. He has been at a local SNF for several weeks prior to adm. Subjective Subjective Pt not able to voice any c/o at this time. Rehab PT IP Eval Objective Appearance Patient Behavior Dependent,Passive,Confused Difficulty following instructions severe Speech Pattern No Speech Ambulation Patient Able to Ambulate No Balance Ability to Arise Unable Sitting Balance Leans or slides in chair Dynamic Sitting Balance Ability Zero Transfers Bed Transfer Ability Total/Dependent (100%) ROM All Extremities PT ROM Status WFL Rehab PT IP prob,goals,plan Problems Date of Evaluation: 01/25/23 PT IP Problems Bed Mobility,Transfers Rehab Potential Rehab Potential Fair Plan PT Intervention Plan Bed Mobility,Transfers, Therapeutic Exercise PT Plan Frequency Daily Duration LOS Discharge Goals Bed Transfer Ability Total/Dependent (100%) Discharge Plan PT Discharge Plan Pt is currently less alert than baseline, but multiple co -morbid conditions leave him basically dependent with all mobility at baseline at [facility]. He is most appropriate to retun to SNF once medically stable for d/c. G -code Required No Eval Complexity Eval Charge Codes 47727 - High Complexity PHYSICIAN CERTIFICATION: I certify the specified therapy services for Mitul Sanches are required, authorized, and reviewed every 30 days.
--- NOTE | 2023-01-25 16:36 | PC.NURSE ---
Showed patients daughter wound care pictures taken at admission.
--- NOTE | 2023-01-25 22:31 | PC.NURSE ---
PT PASSWORD SET UP BY PTS DAUGHTER/POA. - 1978
[2023-01-26] VITALS (10 sets, daily range): BP systolic 130–153; BP diastolic 72–88; PULSE 70–90; RESP 18–20; TEMP 36.4–36.6; O2SAT 90–98; BMI 15.8
--- NOTE | 2023-01-26 04:39 | PC.NURSE ---
Pt remains on 5L 28% fio2 trach collar. Tolerating well with o2 sats 98%. LS diminished. Productive cough noted. Pt turned q2 hours and oral care done when pt would allow. Pt very resistive to oral care. Gastric residuals checked q4 hrs, 20-25 ml each time. Dressings noted to coccyx and right hip c/d/i. Pt opens eyes spontaneously, withdraws to pain. NSR on telemetry. NS infusing @75 ml/hr. Gunter catheter in place draining clear/yellow urine.
[2023-01-26 06:32] LABS: Basophils % 0.6 % (0.1-2.0); Eosinophils # 0.2 K/mm3 (0.0-0.4); Eosinophils % 2.9 % (0.1-12.0); Hematocrit 28.9 % (42.0-52.0); Hemoglobin 8.6 g/dL (14.1-18.0); Lymphocytes # 1.6 K/mm3 (0.7-4.5); Lymphocytes % 27.4 % (10-50); Mean Corpuscular HGB Conc 29.6 g/dL (31.8-35.4); Mean Corpuscular Hemoglobin 26.1 pg (27.0-31.2); Mean Corpuscular Volume 88.3 fl (80-94); Mean Platelet Volume 7.5 fl (7.4-10.4); Monocytes # 0.4 K/mm3 (0.1-1.0); Monocytes % 6.3 % (1.7-9.3); Neutrophils # 3.8 K/mm3 (1.8-7.8); Neutrophils % 62.8 % (37.0-80.0); Platelet Count 804 K/mm3 (142-424); Red Blood Count 3.28 M/mm3 (4.60-6.20); Red Cell Distribution Width 17.7 % (11.5-17.5)
[2023-01-26 06:43] LABS: Anion Gap 9.3 mEq/L (5-15); Blood Urea Nitrogen 20 mg/dl (9-20); Calcium 8.5 mg/dl (8.4-10.2); Carbon Dioxide 21 mmol/L (22.0-30.0); Chloride 119 mmol/L (98-107); Creatinine Clearance Estimated 58 mL/min (50-200); Estimated Glomerular Filt Rate 166 ml/min (>60); GFR (African American) 201 ML/MIN (>60); Glucose 77 mg/dl (74-100); Sodium 147 mmol/L (136-145)
[2023-01-26 06:44] LABS: Potassium 2.3 mmoL/L (3.5-5.1)
--- NOTE | 2023-01-26 06:52 | PC.NURSE ---
notified dr king of critical k+ 2.3
--- NOTE | 2023-01-26 07:43 | DIET.NUTRFU ---
Addendum entered by Joi Alarcon RD, LD 01/26/23 07:58: During rounds with provider patient again denied any discomfort. provider changed his reglan to erythromycin to possible help his mental status. If continues to deny abdominal discomfort will restart TF at 10ml/hr at 3pm today. Will monitor tolerance of TF. Urine output via schultz was 1500ml on 01/25. LBM 01/25. Zofran in place but not needed, patient denies any nausea. Continues ABT tx. Original Note: Spoke to nursing this AM, she witnessed him talk to his daughter yesterday was able to say no, denies pain and abdominal discomfort. TF and prostat still on hold. After medpass last night he did has residuals of 20-25ml. Continues to receive IVF. Potassium depleted today at 2.3L, provider to replace today
--- NOTE | 2023-01-26 07:58 | EXP.ACUTE.PN ---
Subjective *Date: 01/26/23 *Time: 07:58 Interval history: Overnight patient's vital signs have improved. He is now afebrile, normal heart rate and blood pressure. He remains intermittently responsive and will shake his head no when asked if he has pain. He also denies belly distention or bloating. Tube feedings yesterday were restarted initially seem to be doing well but he had some residuals yesterday afternoon. Medical Exam Vital signs and Labs for Last 24 Hours: Vital Signs Temp Pulse Pulse Resp BP Pulse Ox FiO2 01/26/23 07:54 97.9 F 82 19 135/88 90 L 01/26/23 04:00 70 01/26/23 04:00 97.6 F 76 18 130/72 98 01/26/23 00:00 90 01/25/23 23:58 97.5 F L 72 17 137/67 98 01/25/23 20:00 80 01/25/23 20:00 28 01/25/23 19:59 97.5 F L 81 18 124/69 98 01/25/23 16:00 76 01/25/23 16:00 97.7 F 78 17 123/70 98 01/25/23 12:00 90 01/25/23 12:00 98.9 F 86 17 130/70 98 01/25/23 08:00 100 H Intake and Output 01/25/23 01/26/23 01/26/23 19:59 03:59 11:59 Intake Total 1900 / 2868 90 / 2868 878 / 2868 Output Total 2300 / 3200 0 / 3200 900 / 3200 Balance -400 / -332 90 / -332 -22 / -332 Intake: Intake, Oral Amount 0 / 0 Intake, Tube Irrigant Amount 90 / 90 Intake, Total IV Amount 1900 / 2778 878 / 2778 0.9 % Sodium Chloride 1,000 ml 1900 / 2778 878 / 2778 @ 75 mls/hr IV .[id number] [facility] Rx# :[id number] Output: Output, Urine Amount 800 / 1700 0 / 1700 900 / 1700 Output, Urine Amount (Catheter) 1500 / 1500 Gunter 1500 / 1500 Other: Number of Unmeasured Voids 0 0 0 Weight 123 lb 6 oz Patient Weight 01/26/23 11:59 Weight 123 lb 6 oz Laboratory Results - last 24 hr 01/26/23 05:54: WBC 6.0 D, RBC 3.28 L, Hgb 8.6 L, Hct 28.9 L, MCV 88.3, MCH 26.1 L, MCHC 29.6 L, RDW 17.7 H, Plt Count 804 H, MPV 7.5, Neut % (Auto) 62.8, Lymph % (Auto) 27.4, [place] % (Auto) 6.3, Eos % (Auto) 2.9, Baso % (Auto) 0.6, Neut # (Auto) 3.8, Lymph # (Auto) 1.6, [place] # (Auto) 0.4, Eos # (Auto) 0.2, Baso # (Auto) 0.0 01/26/23 05:54: Sodium 147 H, Potassium 2.3 L* D, Chloride 119 H, Carbon Dioxide 21 L, Anion Gap 9.3, BUN 20, Creatinine 0.50 L D, Estimated Creat Clear 58, Estimated GFR 166, Est GFR ( Amer) 201 D, Glucose 77, Calcium 8.5 I & O for Labs for Last 24 Hours: Intake & Output 01/23/23 01/24/23 01/25/23 01/26/23 11:59 11:59 11:59 11:59 Intake Total 711 / 711 0 / 0 0 / 0 2868 / 2868 Output Total 1225 / 1225 2525 / 2525 100 / 100 3200 / 3200 Balance -514 / -514 -2525 / -2525 -100 / -100 -332 / -332 Weight 129 lb 6.581 oz 132 lb 9 oz 133 lb 3 oz 123 lb 6 oz Microbiology Reports for the Last 24 Hours: Microbiology 01/22/23 21:43 Blood Blood Culture - Preliminary Pseudomonas aeruginosa 01/22/23 22:00 Urine,Catheterized Urine Culture - Final Pseudomonas aeruginosa 01/22/23 22:00 Sputum - Endotracheal Tube Aspirate Gram Stain - Final 01/22/23 22:00 Sputum - Endotracheal Tube Aspirate Sputum Culture - Final Pseudomonas aeruginosa Comment:: Patient is awake. Responds to tactile and verbal stimuli. Nods his head no when asked if he has pain or abdominal pain. Lung kimball have poor air movement but clear. Heart rate regular. Abdomen is soft. No evidence of bloating. Present but diminished bowel sounds. G-tube site looks good. Extremities are unchanged. Neurologic status unchanged. Assessment and Plan *Assessment and plan (1) SIRS (systemic inflammatory response syndrome): Status: Acute Category: Medical Code(s): R65.10 - Systemic inflammatory response syndrome (SIRS) of non-infectious origin without acute organ dysfunction (2) HCAP (healthcare-associated pneumonia): Status: Acute Category: Medical Code(s): J18.9 - Pneumonia, unspecified organism (3)
--- NOTE | 2023-01-26 10:28 | P.PN_ITS ---
Subjective *Date: 01/26/23 *Time: 10:28 Medical Exam Vital signs and Labs for Last 24 Hours: Vital Signs Temp Pulse Pulse Resp BP Pulse Ox FiO2 01/26/23 08:00 80 01/26/23 07:54 97.9 F 82 19 135/88 90 L 01/26/23 04:00 70 01/26/23 04:00 97.6 F 76 18 130/72 98 01/26/23 00:00 90 01/25/23 23:58 97.5 F L 72 17 137/67 98 01/25/23 20:00 80 01/25/23 20:00 28 01/25/23 19:59 97.5 F L 81 18 124/69 98 01/25/23 16:00 76 01/25/23 16:00 97.7 F 78 17 123/70 98 01/25/23 12:00 90 01/25/23 12:00 98.9 F 86 17 130/70 98 Intake and Output 01/25/23 01/26/23 01/26/23 23:59 07:59 15:59 Intake Total 1989 878 / 878 Output Total 800 / 2400 900 / 900 0 / 900 Balance 1190 / -410 -22 / -22 0 / -22 Intake: Intake, Oral Amount 0 / 0 Intake, Tube Irrigant Amount 90 / 90 Intake, Total IV Amount 1900 / 1900 878 / 878 0.9 % Sodium Chloride 1,000 ml 1900 / 1900 878 / 878 @ 75 mls/hr IV .[id number] [facility] Rx# :[id number] Output: Output, Urine Amount 800 / 900 900 / 900 0 / 900 Other: Number of Unmeasured Voids 0 0 0 Weight 55.962 kg Patient Weight 01/26/23 23:59 Weight 55.962 kg Laboratory Results - last 24 hr 01/26/23 05:54: WBC 6.0 D, RBC 3.28 L, Hgb 8.6 L, Hct 28.9 L, MCV 88.3, MCH 26.1 L, MCHC 29.6 L, RDW 17.7 H, Plt Count 804 H, MPV 7.5, Neut % (Auto) 62.8, Lymph % (Auto) 27.4, [place] % (Auto) 6.3, Eos % (Auto) 2.9, Baso % (Auto) 0.6, Neut # (Auto) 3.8, Lymph # (Auto) 1.6, [place] # (Auto) 0.4, Eos # (Auto) 0.2, Baso # (Auto) 0.0 01/26/23 05:54: Sodium 147 H, Potassium 2.3 L* D, Chloride 119 H, Carbon Dioxide 21 L, Anion Gap 9.3, BUN 20, Creatinine 0.50 L D, Estimated Creat Clear 58, Estimated GFR 166, Est GFR ( Amer) 201 D, Glucose 77, Calcium 8.5 I & O for Labs for Last 24 Hours: Intake & Output 01/23/23 01/24/23 01/25/23 01/26/23 23:59 23:59 23:59 23:59 Intake Total 711 / 711 0 / 0 1989 878 / 878 Output Total 1750 / 2050 1999 / 1999 2400 / 2400 900 / 900 Balance -1039 / -1339 -1999 / -2000 -410 / -410 - Weight 58.7 kg 60.129 kg 60.413 kg 55.962 kg Microbiology Reports for the Last 24 Hours: Microbiology 01/22/23 21:43 Blood Blood Culture - Preliminary Pseudomonas aeruginosa 01/22/23 22:00 Urine,Catheterized Urine Culture - Final Pseudomonas aeruginosa 01/22/23 22:00 Sputum - Endotracheal Tube Aspirate Gram Stain - Final 01/22/23 22:00 Sputum - Endotracheal Tube Aspirate Sputum Culture - Final Pseudomonas aeruginosa The patient's infection will respond to the chosen ABx?: Yes (PSEUDOMONAS SPUTUM AND BLOOD, CEFEPIME SUSCEPTIBLE.) Is the patient receiving the right drug, dose, and route?: Yes Could a more targeted ABx be ordered?: No How long ABx needed (days)?: 7
--- NOTE | 2023-01-26 15:15 | PC.NURSE ---
RESP CARE NOTE: Nsg requests patient to be tracheally suctioned. Large amount tenacious clear secretions suctioned via tracheal tube. Will continue to monitor patient.
[2023-01-26 18:47] LABS: Chloride 116 mmol/L (98-107); Sodium 148 mmol/L (136-145)
[2023-01-26 18:50] LABS: Anion Gap 12.7 mEq/L (5-15); Blood Urea Nitrogen 16 mg/dl (9-20); Calcium 8.2 mg/dl (8.4-10.2); Carbon Dioxide 22 mmol/L (22.0-30.0); Creatinine Clearance Estimated 58 mL/min (50-200); Estimated Glomerular Filt Rate 166 ml/min (>60); GFR (African American) 201 ML/MIN (>60); Glucose 72 mg/dl (74-100)
[2023-01-26 19:04] LABS: Potassium 2.7 mmoL/L (3.5-5.1)
--- NOTE | 2023-01-26 19:08 | PC.NURSE ---
Dr. Salinas notifed of critical K+ result. K+ ordered.
--- NOTE | 2023-01-26 19:50 | PC.NURSE ---
Per Dr Salinas note, patient is to be started back on tube feeds at 10ml/hr if patient denies abdomen tenderness or pain. Spoke with Dr Cobb regarding getting a order for the tube feeds. Stated to start the feed that was previously ordered for patient per dr gomes note.
--- NOTE | 2023-01-26 21:40 | PC.NURSE ---
Patient shook head no to any abdomen tenderness/pain tonight during assessment. Per Dr. Ray note, tube feeds are to be restarted. Spoke with Dr Cobb and received order to start feeds. Nutren 2.0 started at 10ml/hr. 50ml flush TID. Will continue to monitor patient.
--- NOTE | 2023-01-26 23:40 | PC.NURSE ---
Patient denies any tenderness upon palpating abdomen, no distention noted. No other signs of distress noted. Increased tube feed to 20ml/hr. Will continue to monitor patient
[2023-01-27] VITALS (8 sets, daily range): BP systolic 142–175; BP diastolic 76–95; PULSE 75–92; RESP 18–20; TEMP 36.1–36.9; O2SAT 92–100; BMI 15.7
--- NOTE | 2023-01-27 01:36 | PC.NURSE ---
patient had 60ml of gastric residual
--- NOTE | 2023-01-27 02:58 | PC.NURSE ---
Patients abdomen is mildly distended, upon palpitation patient shook head yes when asked if abdomen was tender/painful. tube feeds were going at 20ml/hr. checked gastric residual at this time and it was 120. Dr king notified and stated to hold feeds until makes rounds in the am.
--- NOTE | 2023-01-27 04:23 | PC.NURSE ---
patient has rested some through the shift. communicates by shaking head yes or no. stable on 5L at 28% trach collar. schultz to bedside, draining yellow urine. started patient on tube feeds and had to be put on hold d/t abd distention and pain upon palpation per patient shaking head yes. no signs of distress.
[2023-01-27 07:31] LABS: Anion Gap 8.6 mEq/L (5-15); Blood Urea Nitrogen 17 mg/dl (9-20); Calcium 8.4 mg/dl (8.4-10.2); Carbon Dioxide 22 mmol/L (22.0-30.0); Chloride 119 mmol/L (98-107); Creatinine Clearance Estimated 57 mL/min (50-200); Estimated Glomerular Filt Rate 215 ml/min (>60); GFR (African American) 260 ML/MIN (>60); Glucose 84 mg/dl (74-100); Sodium 147 mmol/L (136-145)
[2023-01-27 07:46] LABS: Potassium 2.6 mmoL/L (3.5-5.1)
--- NOTE | 2023-01-27 07:56 | XR_ITS ---
FINAL REPORT CLINICAL HISTORY: Abdominal pain FINDINGS: A single supine view the abdomen was obtained. A gastric tube projects over the left upper quadrant. The bowel gas pattern is nonspecific but nonobstructive. Vascular calcifications are noted. Osseous structures are within normal limits. IMPRESSION: Nonspecific but nonobstructive bowel gas pattern. Reviewed, Interpreted and Dictated by Angelique Watson MD Transcribed by Zeenat Pino Authenticated and [facility]
[2023-01-27 08:07] LABS: Basophils % 0.5 % (0.1-2.0); Eosinophils # 0.3 K/mm3 (0.0-0.4); Eosinophils % 3.7 % (0.1-12.0); Hematocrit 28.7 % (42.0-52.0); Hemoglobin 8.7 g/dL (14.1-18.0); Lymphocytes # 1.9 K/mm3 (0.7-4.5); Lymphocytes % 27.7 % (10-50); Mean Corpuscular HGB Conc 30.4 g/dL (31.8-35.4); Mean Corpuscular Hemoglobin 26.3 pg (27.0-31.2); Mean Corpuscular Volume 86.3 fl (80-94); Mean Platelet Volume 7.8 fl (7.4-10.4); Monocytes # 0.4 K/mm3 (0.1-1.0); Monocytes % 5.7 % (1.7-9.3); Neutrophils # 4.2 K/mm3 (1.8-7.8); Neutrophils % 62.4 % (37.0-80.0); Platelet Count 798 K/mm3 (142-424); Red Blood Count 3.32 M/mm3 (4.60-6.20); White Blood Count 6.7 K/mm3 (4.8-10.8)
--- NOTE | 2023-01-27 08:09 | EXP.ACUTE.PN ---
Subjective *Date: 01/27/23 *Time: 08:09 Interval history: Overnight patient was stable vis-?-vis cardiovascular issues and urine output and mental status, but has failed to have significant movement of his clinical ileus. His residuals remain high and has been unable to tolerate even low-grade tube feeds. We initiated erythromycin per tube yesterday but this has not been effective. He is also still hypokalemic and spite of PEG tube supplementation yesterday. Medical Exam Vital signs and Labs for Last 24 Hours: Vital Signs Temp Pulse Pulse Resp BP Pulse Ox FiO2 01/27/23 07:29 97.0 F L 75 18 156/81 H 100 01/27/23 05:45 92 L 28 01/27/23 04:00 85 01/26/23 20:00 88 01/27/23 00:00 92 H 01/27/23 04:00 97.6 F 85 20 149/76 H 94 L 01/26/23 23:55 28 01/27/23 00:00 97.5 F L 86 18 142/77 H 96 01/26/23 20:00 28 01/26/23 19:48 97.7 F 85 18 147/72 H 97 01/26/23 16:00 90 01/26/23 15:09 97.5 F L 85 19 151/83 H 97 01/26/23 12:00 80 01/26/23 11:04 97.7 F 80 20 153/78 H 96 Intake and Output 01/26/23 01/27/23 01/27/23 19:59 03:59 11:59 Intake Total 1100 / 1240 140 / 1240 0 / 1240 Output Total 1800 / 3500 1600 / 3500 100 / 3500 Balance -700 / -2260 -1460 / -2260 -100 / -2260 Intake: Intake, Oral Amount 0 / 0 0 / 0 Intake, Tube Feeding Amount 40 / 40 Intake, Total IV Amount 1100 / 1200 100 / 1200 0.9 % Sodium Chloride 1,000 ml 1100 / 1200 100 / 1200 @ 75 mls/hr IV .[id number] [facility] Rx# :[id number] Output: Output, Urine Amount 1800 / 2700 800 / 2700 100 / 2700 Output, Urine Amount (Catheter) 800 / 800 Gunter 800 / 800 Other: Number of Unmeasured Voids 0 0 0 Weight 123 lb 4 oz Patient Weight 01/27/23 11:59 Weight 123 lb 4 oz Laboratory Results - last 24 hr 01/26/23 18:08: Sodium 148 H, Potassium 2.7 L*, Chloride 116 H, Carbon Dioxide 22, Anion Gap 12.7, BUN 16, Creatinine 0.50 L, Estimated Creat Clear 58, Estimated GFR 166, Est GFR ( Amer) 201, Glucose 72 L, Calcium 8.2 L 01/27/23 06:40: WBC 6.7, RBC 3.32 L, Hgb 8.7 L, Hct 28.7 L, MCV 86.3, MCH 26.3 L, MCHC 30.4 L, RDW 18.0 H, Plt Count 798 H, MPV 7.8, Neut % (Auto) 62.4, Lymph % (Auto) 27.7, [place] % (Auto) 5.7, Eos % (Auto) 3.7, Baso % (Auto) 0.5, Neut # (Auto) 4.2, Lymph # (Auto) 1.9, [place] # (Auto) 0.4, Eos # (Auto) 0.3, Baso # (Auto) 0.0 01/27/23 06:40: Sodium 147 H, Potassium 2.6 L*, Chloride 119 H, Carbon Dioxide 22, Anion Gap 8.6, BUN 17, Creatinine 0.40 L, Estimated Creat Clear 57, Estimated GFR 215, Est GFR ( Amer) 260 D, Glucose 84, Calcium 8.4 I & O for Labs for Last 24 Hours: Intake & Output 01/24/23 01/25/23 01/26/23 01/27/23 11:59 11:59 11:59 11:59 Intake Total 0 / 0 0 / 0 2868 / 2868 1240 / 1240 Output Total 2525 / 2525 100 / 100 3200 / 3200 3500 / 3500 Balance -2525 / -2525 -100 / -100 -332 / -332 -2260 / -2260 Weight 132 lb 9 oz 133 lb 3 oz 123 lb 6 oz 123 lb 4 oz Microbiology Reports for the Last 24 Hours: Microbiology 01/22/23 21:43 Blood Blood Culture - Preliminary Pseudomonas aeruginosa Comment:: Patient is awake. Responds to tactile and verbal stimuli. Nods his head no when asked if he has pain or abdominal pain. Lung kimball have poor air movement but clear. Heart rate regular. Abdomen is soft. No evidence of bloating. Present but diminished bowel sounds. G-tube site looks good. Extremities are unchanged. Neurologic status unchanged. Assessment and Plan *Assessment and plan (1) SIRS (systemic inflammatory response syndrome): Status: Acute Category: Medical Code(s): R65.10 - Systemic inflammatory response syndrome (SIRS) of non-infectious origin without acute organ dysfunction (2) HCAP (healthcare-associated pneumonia): Status: Acute Category: Medical Code(s): J18.9 - Pneumonia, unspecified organism (3
--- NOTE | 2023-01-27 09:56 | DIET.NUTRFU ---
Addendum entered by Joi Alarcon RD, LD 01/27/23 14:42: Spoke to nursing, she reports patient showed discomfort with flushes and there was residuals with medpass. He will receive his 2ed does of reglan around 3pm, it is scheduled IV Q6H. Will continue to monitor tolerance of medpass and flushes to determine when to restart TF Original Note: TF was started yesterday afternoon and was still unable to tolerate with 120-160ml residuals. TF was held to reeval this AM. KUB was completed with no issues indicated. Reglan restarted IV and continues on erthromycin to help with mobility. Potassium depleted at 2.6L, replacement ordered. Patient is not adsorbing nutrition at this time. With review status with nursing later today
--- NOTE | 2023-01-27 13:13 | PC.NURSE ---
Per morning rounds, Dr. Salinas discontinued tele monitor.
--- NOTE | 2023-01-27 22:00 | PC.NURSE ---
40cc of gastric residual
[2023-01-28] VITALS (7 sets, daily range): BP systolic 126–176; BP diastolic 76–99; PULSE 76–89; RESP 18–22; TEMP 36.1–37.2; O2SAT 91–98; BMI 15.0
--- NOTE | 2023-01-28 02:00 | PC.NURSE ---
gastric residual of 30cc
--- NOTE | 2023-01-28 08:14 | EXP.ACUTE.PN ---
Subjective *Date: 01/28/23 *Time: 08:14 Interval history: Overnight patient has been stable. His residuals from his G-tube have improved slightly overnight. He has not had a bowel movement in 3 days. X-ray showed no evidence of obstruction. Medical Exam Vital signs and Labs for Last 24 Hours: Vital Signs Temp Pulse Resp BP Pulse Ox FiO2 01/28/23 04:00 97.3 F L 82 22 159/92 H 94 L 01/27/23 20:00 100 28 01/28/23 00:00 98.9 F 84 20 166/81 H 91 L 01/27/23 19:53 98.4 F 76 20 175/95 H 100 01/27/23 15:22 97.3 F L 77 18 148/78 H 100 01/27/23 11:31 97.4 F L 76 18 148/80 H 100 01/27/23 19:53 28 Intake and Output 01/27/23 01/28/23 01/28/23 19:59 03:59 11:59 Intake Total 1300 / 2300 1000 / 2300 Output Total 725 / 2525 1800 / 2525 0 / 2525 Balance 575 / -225 -800 / -225 0 / -225 Intake: Intake, Oral Amount 0 / 0 Intake, Total IV Amount 1300 / 2300 1000 / 2300 0.9 % Sodium Chloride 1,000 ml 1300 / 2300 1000 / 2300 @ 75 mls/hr IV .[id number] [facility] Rx# :[id number] Output: Output, Urine Amount 725 / 1625 900 / 1625 0 / 1625 Output, Urine Amount (Catheter) 900 / 900 Gunter 900 / 900 Other: Number of Unmeasured Voids 0 0 0 Weight 117 lb 9.6 oz Patient Weight 01/28/23 11:59 Weight 117 lb 9.6 oz I & O for Labs for Last 24 Hours: Intake & Output 01/25/23 01/26/23 01/27/23 01/28/23 11:59 11:59 11:59 11:59 Intake Total 0 / 0 2868 / 2868 1240 / 1240 2300 / 2300 Output Total 100 / 100 3200 / 3200 3500 / 3500 2525 / 2525 Balance -100 / -100 -332 / -332 -2260 / -2260 -225 / -225 Weight 133 lb 3 oz 123 lb 6 oz 123 lb 4 oz 117 lb 9.6 oz Microbiology Reports for the Last 24 Hours: Microbiology 01/22/23 21:43 Blood Blood Culture - Final NO GROWTH AFTER 5 DAYS Comment:: Patient is alert, nods yes that he has some abdominal discomfort but nods no that he has his pain anywhere else. Lungs are poorly expanded but at baseline. Heart rate regular. Abdomen is soft, but he appears to grimace with deep palpation around the entire abdomen, no focal areas of tenderness or involuntary guarding. Assessment and Plan *Assessment and plan (1) SIRS (systemic inflammatory response syndrome): Status: Acute Category: Medical Code(s): R65.10 - Systemic inflammatory response syndrome (SIRS) of non-infectious origin without acute organ dysfunction (2) HCAP (healthcare-associated pneumonia): Status: Acute Category: Medical Code(s): J18.9 - Pneumonia, unspecified organism (3) Elevated troponin: Status: Acute Category: Medical Code(s): R77.8 - Other specified abnormalities of plasma proteins (4) Hemorrhagic stroke: Status: Acute Category: Medical Code(s): I61.9 - Nontraumatic intracerebral hemorrhage, unspecified (5) Gastrojejunostomy tube status: Status: Acute Category: Medical Code(s): Z93.4 - Other artificial openings of gastrointestinal tract status (6) Tracheostomy status: Status: Acute Category: Surgical Code(s): Z93.0 - Tracheostomy status (7) Severe protein-calorie malnutrition: Status: Acute Category: Medical Code(s): E43 - Unspecified severe protein-calorie malnutrition (8) Polysubstance abuse: Status: Acute Category: Medical Code(s): F19.10 - Other psychoactive substance abuse, uncomplicated (9) Postsurgical presence of cerebrospinal fluid drainage device: Status: Acute Category: Surgical Code(s): Z98.2 - Presence of cerebrospinal fluid drainage device (10) History of embolism: Status: Acute Category: Medical Code(s): Z86.718 - Personal history of other venous thrombosis and embolism (11) Sepsis due to Pseudomonas: Status: Acute Category: Medical Code(s): A41.52 - Sepsis due to Pse
--- NOTE | 2023-01-28 08:14 | DIET.NUTRFU ---
Addendum entered by Joi Alarcon RD, LD 01/28/23 13:03: Tubefeeding is now running. Fleet enema given, no BM yet but did have poop present during enema tx. Original Note: Reviewed patient this AM with IDT, his residual overnight with flush and medpass were 30-40ml. TF were on hold yesterday with reglan started. He received 4 doses of reglan yesterday, will continue reglan today. LBM noted 01/25, ordered fleet enema today to clean out from below. Then plan to start TF around noon at 10ml/hr Nutren 2.0 to start nutritional supplement. Once TF is tolerated plan is discharge back to [place]. He continues on IVF, once TF tolerated, discontinue IVF. No labs today, ordered some for tomorrow. Will monitor GI status and TF
--- NOTE | 2023-01-28 21:59 | PC.NURSE ---
residual checked and now 0.
--- NOTE | 2023-01-28 23:02 | PC.NURSE ---
Pt. suctioned per respiratory therapist.
[2023-01-29 04:00] VITALS: BP 170/96; PULSE 88; RESP 20; TEMP 36.5; O2SAT 100; BMI 15.4
--- NOTE | 2023-01-29 04:05 | PC.NURSE ---
order desk caller . called about pt's BP of 170/96 P:88. . states to let on coming nurse know so she can see what the primary would like to do.
--- NOTE | 2023-01-29 04:10 | PC.NURSE ---
Pt remains on 5L 28% fio2 trach collar. Tolerating well with o2 sats 97%. Pt turned q2 hours and oral care done when pt would allow. Gastric residuals checked q4 hrs, 0 ml on the last 2 checks. One BM this am which the nursing techn states was watery. Dressings noted to coccyx and right hip c/d/i. Pt opens eyes spontaneously, withdraws to pain. NS infusing @75 ml/hr. Gunter catheter in place draining clear/yellow urine.
[2023-01-29 07:28] LABS: Basophils # 0.1 K/mm3 (0-0.2); Basophils % 0.7 % (0.1-2.0); Eosinophils # 0.3 K/mm3 (0.0-0.4); Eosinophils % 3.6 % (0.1-12.0); Hematocrit 32.7 % (42.0-52.0); Hemoglobin 10.3 g/dL (14.1-18.0); Lymphocytes # 2.7 K/mm3 (0.7-4.5); Lymphocytes % 31.8 % (10-50); Mean Corpuscular HGB Conc 31.6 g/dL (31.8-35.4); Mean Corpuscular Hemoglobin 26.8 pg (27.0-31.2); Mean Corpuscular Volume 84.6 fl (80-94); Mean Platelet Volume 7.4 fl (7.4-10.4); Monocytes # 0.5 K/mm3 (0.1-1.0); Monocytes % 6.3 % (1.7-9.3); Neutrophils # 4.8 K/mm3 (1.8-7.8); Neutrophils % 57.6 % (37.0-80.0); Platelet Count 660 K/mm3 (142-424); Red Blood Count 3.87 M/mm3 (4.60-6.20); Red Cell Distribution Width 18.4 % (11.5-17.5); White Blood Count 8.4 K/mm3 (4.8-10.8)
[2023-01-29 08:00] VITALS: BP 129/75; PULSE 88; RESP 22; TEMP 36.3; O2SAT 97
--- NOTE | 2023-01-29 08:34 | EXP.ACUTE.PN ---
Subjective *Date: 01/29/23 *Time: 08:34 Interval history: Patient has remained hemodynamically stable and at his baseline level of alertness and responsiveness. He did have a fairly large loose bowel movement in response to the fleets enema yesterday. He had very erratic residual readings from tube feed administration through the night, and this morning has very minimal residual after 4 hours of 10 mL/h tube feeds. No evidence of tube feeding from his mouth or tracheostomy. Medical Exam Vital signs and Labs for Last 24 Hours: Vital Signs Temp Pulse Resp BP Pulse Ox 01/29/23 04:00 97.7 F 88 20 170/96 H 100 01/28/23 23:52 97.7 F 86 20 163/99 H 97 01/28/23 20:00 97 01/28/23 20:00 98.3 F 89 18 146/92 H 98 01/28/23 16:00 97.8 F 88 20 130/76 96 01/28/23 12:00 97.1 F L 83 22 126/78 97 Intake and Output 01/28/23 01/29/23 01/29/23 19:59 03:59 11:59 Intake Total 3505 / 4235 730 / 4235 Output Total 500 / 1100 600 / 1100 Balance 3005 / 3135 730 / 3135 -600 / 3135 Intake: Intake, Tube Feeding Amount 43 / 123 80 / 123 Intake, Tube Irrigant Amount 50 / 50 Intake, Total IV Amount 3462 / 4062 600 / 4062 0.9 % Sodium Chloride 1,000 ml 3462 / 4062 600 / 4062 @ 75 mls/hr IV .[id number] [facility] Rx# :[id number] Output: Output, Urine Amount 500 / 1100 600 / 1100 Other: Number of Bowel Movements 1 Weight 120 lb 8 oz Patient Weight 01/29/23 11:59 Weight 120 lb 8 oz Laboratory Results - last 24 hr 01/29/23 07:11: WBC 8.4 D, RBC 3.87 L, Hgb 10.3 L, Hct 32.7 L, MCV 84.6, MCH 26.8 L, MCHC 31.6 L, RDW 18.4 H, Plt Count 660 H, MPV 7.4, Neut % (Auto) 57.6, Lymph % (Auto) 31.8, [place] % (Auto) 6.3, Eos % (Auto) 3.6, Baso % (Auto) 0.7, Neut # (Auto) 4.8, Lymph # (Auto) 2.7, [place] # (Auto) 0.5, Eos # (Auto) 0.3, Baso # (Auto) 0.1 I & O for Labs for Last 24 Hours: Intake & Output 01/26/23 01/27/23 01/28/23 01/29/23 11:59 11:59 11:59 11:59 Intake Total 2868 / 2868 1240 / 1240 2300 / 2300 4235 / 4235 Output Total 3200 / 3200 3500 / 3500 3275 / 3275 1100 / 1100 Balance -332 / -332 -2260 / -2260 -975 / -975 3135 / 3135 Weight 123 lb 6 oz 123 lb 4 oz 117 lb 9.6 oz 120 lb 8 oz Microbiology Reports for the Last 24 Hours: Microbiology 01/22/23 21:43 Blood Blood Culture - Final Pseudomonas aeruginosa Comment:: Patient is alert, nods yes that he has some abdominal discomfort but nods no that he has his pain anywhere else. Lungs are poorly expanded but at baseline. Heart rate regular. Abdomen is soft, patient is no longer grimacing with abdominal palpation and it seems softer, no focal areas of tenderness or involuntary guarding. Assessment and Plan *Assessment and plan (1) SIRS (systemic inflammatory response syndrome): Status: Acute Category: Medical Code(s): R65.10 - Systemic inflammatory response syndrome (SIRS) of non-infectious origin without acute organ dysfunction (2) HCAP (healthcare-associated pneumonia): Status: Acute Category: Medical Code(s): J18.9 - Pneumonia, unspecified organism (3) Elevated troponin: Status: Acute Category: Medical Code(s): R77.8 - Other specified abnormalities of plasma proteins (4) Hemorrhagic stroke: Status: Acute Category: Medical Code(s): I61.9 - Nontraumatic intracerebral hemorrhage, unspecified (5) Gastrojejunostomy tube status: Status: Acute Category: Medical Code(s): Z93.4 - Other artificial openings of gastrointestinal tract status (6) Tracheostomy status: Status: Acute Category: Surgical Code(s): Z93.0 - Tracheostomy status (7) Severe protein-calorie malnutrition: Status: Acute Category: Medical Code(s): E43 - Unspecified severe protein-calorie malnutrition (8) Polysubstance abuse: Status: Acute Category: Medical Code(s
[2023-01-29 09:50] LABS: Anion Gap 8.4 mEq/L (5-15); Blood Urea Nitrogen 8 mg/dl (9-20); Calcium 8.3 mg/dl (8.4-10.2); Carbon Dioxide 29 mmol/L (22.0-30.0); Chloride 112 mmol/L (98-107); Creatinine Clearance Estimated 56 mL/min (50-200); Estimated Glomerular Filt Rate 215 ml/min (>60); GFR (African American) 260 ML/MIN (>60); Glucose 92 mg/dl (74-100); Potassium 3.4 mmoL/L (3.5-5.1); Sodium 146 mmol/L (136-145)
[2023-01-29 10:21] VITALS: BMI 16.2
[2023-01-29 12:00] VITALS: BP 164/100; PULSE 81; RESP 20; TEMP 36.3; O2SAT 97
--- NOTE | 2023-01-29 13:28 | PC.NURSE ---
tech note; notified nurse of high blood pressure for 1200 vital signs
[2023-01-29 16:00] VITALS: BP 144/75; PULSE 83; RESP 22; TEMP 36.4; O2SAT 98
--- NOTE | 2023-01-29 16:48 | PC.NURSE ---
PT IS RESTING IN BED. PT IS NONVERBAL HOWEVER WILL FOLLOW SIMPLE COMMANDS. TUBE FEEDINGS WERE STOPPED AT 0800 THIS MORNING DUE TO 55 ML'S OF RESIDUAL. TUBE FEEDINGS STARTED BACK AT 10 ML'S/HR AT 1200. 5 ML'S RESIDUAL AT 1200. TRACH HAS BEEN SUCTIONED 3X THIS SHIFT. LUNG SOUNDS HAVE RHONCHI T/O. DRESSINGS C/D/I TO COCCYX AND RIGHT HIP. TURNED AND REPOSITIONED IN BED. ORAL CARE PROVIDED. WILL CONTINUE TO MONITOR.
[2023-01-29 20:00] VITALS: BP 161/91; PULSE 90; RESP 16; TEMP 36.1; O2SAT 96
--- NOTE | 2023-01-29 21:14 | PC.NURSE ---
Pt's pulses are weak in both ankles and palpable. Daughter would like the dr's to have his legs checked for blockages.
[2023-01-29 23:53] VITALS: BP 131/87; PULSE 87; RESP 18; TEMP 36.4; O2SAT 97
--- NOTE | 2023-01-30 02:19 | PC.NURSE ---
Pt. suctioned by respiratory.
[2023-01-30 04:00] VITALS: BP 133/88; PULSE 87; RESP 20; TEMP 37.1; O2SAT 95; BMI 15.2
--- NOTE | 2023-01-30 04:22 | PC.NURSE ---
Patient has rested through the shift. Communicates by shaking head yes or no. stable on 5L at 28% trach collar. schultz to bedside, draining yellow urine. Patient on tube feeds @ 20 ml/hr and tolerating. Will continue to monitor.
[2023-01-30 07:55] VITALS: BP 128/80; PULSE 82; RESP 18; TEMP 36.9; O2SAT 95
[2023-01-30 08:07] LABS: Basophils # 0.1 K/mm3 (0-0.2); Basophils % 0.6 % (0.1-2.0); Eosinophils # 0.4 K/mm3 (0.0-0.4); Eosinophils % 5.1 % (0.1-12.0); Hematocrit 32.2 % (42.0-52.0); Hemoglobin 10.3 g/dL (14.1-18.0); Lymphocytes # 2.7 K/mm3 (0.7-4.5); Lymphocytes % 32.2 % (10-50); Mean Corpuscular HGB Conc 31.9 g/dL (31.8-35.4); Mean Corpuscular Hemoglobin 26.8 pg (27.0-31.2); Mean Corpuscular Volume 83.9 fl (80-94); Mean Platelet Volume 7.7 fl (7.4-10.4); Monocytes # 0.5 K/mm3 (0.1-1.0); Monocytes % 5.7 % (1.7-9.3); Neutrophils # 4.7 K/mm3 (1.8-7.8); Neutrophils % 56.4 % (37.0-80.0); Platelet Count 656 K/mm3 (142-424); Red Blood Count 3.84 M/mm3 (4.60-6.20); Red Cell Distribution Width 18.9 % (11.5-17.5); White Blood Count 8.4 K/mm3 (4.8-10.8)
--- NOTE | 2023-01-30 08:14 | EXP.ACUTE.PN ---
Subjective *Date: 01/30/23 *Time: 08:14 Interval history: Patient has remained stable from a cardiovascular and neurologic perspective. He has had a fairly good sized bowel movement, and his abdomen has been soft according nursing staff. They have been able to get his tube feed rate up to 20 mL/h with minimal residuals. His goal rate is 45/h according to dietitian recommendation. Medical Exam Vital signs and Labs for Last 24 Hours: Vital Signs Temp Pulse Resp BP Pulse Ox FiO2 01/30/23 07:55 98.5 F 82 18 128/80 95 01/30/23 04:00 98.7 F 87 20 133/88 95 01/29/23 23:53 97.5 F L 87 18 131/87 97 01/29/23 20:00 97.0 F L 90 16 161/91 H 96 01/29/23 20:00 96 01/29/23 20:04 28 01/29/23 16:00 97.5 F L 83 22 144/75 H 98 01/29/23 12:00 97.4 F L 81 20 164/100 H 97 Intake and Output 01/29/23 01/30/23 01/30/23 19:59 03:59 11:59 Intake Total 1053 / 1463 410 / 1463 0 / 1463 Output Total 850 / 1650 650 / 1650 150 / 1650 Balance 203 / -187 -240 / -187 -150 / -187 Intake: Intake, Oral Amount 0 / 0 Intake, Tube Feeding Amount 218 / 378 160 / 378 Intake, Tube Irrigant Amount 50 / 100 50 / 100 Intake, Total IV Amount 785 / 985 200 / 985 0.9 % Sodium Chloride 1,000 ml 785 / 985 200 / 985 @ 75 mls/hr IV .[id number] [facility] Rx# :[id number] Output: Output, Urine Amount 850 / 1650 650 / 1650 150 / 1650 Other: Number of Unmeasured Voids 0 Number of Bowel Movements 1 Weight 118 lb 8 oz Patient Weight 01/30/23 11:59 Weight 118 lb 8 oz Laboratory Results - last 24 hr 01/29/23 07:11: Sodium 146 H, Potassium 3.4 L D, Chloride 112 H, Carbon Dioxide 29, Anion Gap 8.4, BUN 8 L D, Creatinine 0.40 L, Estimated Creat Clear 56, Estimated GFR 215, Est GFR ( Amer) 260, Glucose 92, Calcium 8.3 L 01/30/23 07:16: WBC 8.4, RBC 3.84 L, Hgb 10.3 L, Hct 32.2 L, MCV 83.9, MCH 26.8 L, MCHC 31.9, RDW 18.9 H, Plt Count 656 H, MPV 7.7, Neut % (Auto) 56.4, Lymph % (Auto) 32.2, [place] % (Auto) 5.7, Eos % (Auto) 5.1, Baso % (Auto) 0.6, Neut # (Auto) 4.7, Lymph # (Auto) 2.7, [place] # (Auto) 0.5, Eos # (Auto) 0.4, Baso # (Auto) 0.1 I & O for Labs for Last 24 Hours: Intake & Output 01/27/23 01/28/23 01/29/23 01/30/23 11:59 11:59 11:59 11:59 Intake Total 1240 / 1240 2300 / 2300 4355 / 4355 1463 / 1463 Output Total 3500 / 3500 3275 / 3275 1600 / 1600 1650 / 1650 Balance -2260 / -2260 -975 / -975 2755 / 2755 -187 / -187 Weight 123 lb 4 oz 117 lb 9.6 oz 126 lb 5 oz 118 lb 8 oz Microbiology Reports for the Last 24 Hours: Microbiology 01/22/23 21:43 Blood Blood Culture - Final Pseudomonas aeruginosa Comment:: Patient is alert, nods no that he has his pain anywhere. Lungs are poorly expanded but at baseline. Heart rate regular. Abdomen is soft, patient is no longer grimacing with abdominal palpation and it seems softer, no focal areas of tenderness or involuntary guarding. Assessment and Plan *Assessment and plan (1) SIRS (systemic inflammatory response syndrome): Status: Acute Category: Medical Code(s): R65.10 - Systemic inflammatory response syndrome (SIRS) of non-infectious origin without acute organ dysfunction (2) HCAP (healthcare-associated pneumonia): Status: Acute Category: Medical Code(s): J18.9 - Pneumonia, unspecified organism (3) Elevated troponin: Status: Acute Category: Medical Code(s): R77.8 - Other specified abnormalities of plasma proteins (4) Hemorrhagic stroke: Status: Acute Category: Medical Code(s): I61.9 - Nontraumatic intracerebral hemorrhage, unspecified (5) Gastrojejunostomy tube status: Status: Acute Category: Medical Code(s): Z93.4 - Other artificial openings of gastrointestinal tract status (6) Tracheostomy status: Status: Acute Category: Surgical Code(s): Z93.0 - Tracheost
[2023-01-30 09:37] LABS: Anion Gap 3.5 mEq/L (5-15); Blood Urea Nitrogen 8 mg/dl (9-20); Calcium 8.2 mg/dl (8.4-10.2); Carbon Dioxide 29 mmol/L (22.0-30.0); Chloride 112 mmol/L (98-107); Creatinine Clearance Estimated 55 mL/min (50-200); Estimated Glomerular Filt Rate 215 ml/min (>60); GFR (African American) 260 ML/MIN (>60); Glucose 101 mg/dl (74-100); Potassium 3.5 mmoL/L (3.5-5.1); Sodium 141 mmol/L (136-145)
[2023-01-30 11:09] VITALS: BP 139/69; PULSE 94; RESP 20; TEMP 36.7; O2SAT 100
--- NOTE | 2023-01-30 11:16 | P.PN_ITS ---
Subjective *Date: 01/30/23 *Time: 11:16 Medical Exam Vital signs and Labs for Last 24 Hours: Vital Signs Temp Pulse Resp BP Pulse Ox FiO2 01/30/23 11:09 98.0 F 94 H 20 139/69 100 01/30/23 07:55 98.5 F 82 18 128/80 95 01/30/23 04:00 98.7 F 87 20 133/88 95 01/29/23 23:53 97.5 F L 87 18 131/87 97 01/29/23 20:00 97.0 F L 90 16 161/91 H 96 01/29/23 20:00 96 01/29/23 20:04 28 01/29/23 16:00 97.5 F L 83 22 144/75 H 98 01/29/23 12:00 97.4 F L 81 20 164/100 H 97 Intake and Output 01/29/23 01/30/23 01/30/23 23:59 07:59 15:59 Intake Total 1053 / 1903 410 / 560 150 / 560 Output Total 650 / 2600 150 / 150 0 / 150 Balance 403 / -697 260 / 410 150 / 410 Intake: Intake, Oral Amount 0 / 0 Intake, Tube Feeding Amount 218 / 298 160 / 160 Intake, Tube Irrigant Amount 50 / 220 50 / 200 150 / 200 Intake, Total IV Amount 785 / 1385 200 / 200 0.9 % Sodium Chloride 1,000 ml 785 / 1385 200 / 200 @ 75 mls/hr IV .[id number] [facility] Rx# :[id number] Output: Output, Urine Amount 650 / 2600 150 / 150 0 / 150 Other: Number of Unmeasured Voids 0 0 Number of Bowel Movements 1 Weight 53.751 kg Patient Weight 01/30/23 23:59 Weight 53.751 kg Laboratory Results - last 24 hr 01/30/23 07:16: Sodium 141, Potassium 3.5, Chloride 112 H, Carbon Dioxide 29, Anion Gap 3.5 L, BUN 8 L, Creatinine 0.40 L, Estimated Creat Clear 55, Estimated GFR 215, Est GFR ( Amer) 260, Glucose 101 H, Calcium 8.2 L 01/30/23 07:16: WBC 8.4, RBC 3.84 L, Hgb 10.3 L, Hct 32.2 L, MCV 83.9, MCH 26.8 L, MCHC 31.9, RDW 18.9 H, Plt Count 656 H, MPV 7.7, Neut % (Auto) 56.4, Lymph % (Auto) 32.2, [place] % (Auto) 5.7, Eos % (Auto) 5.1, Baso % (Auto) 0.6, Neut # (Auto) 4.7, Lymph # (Auto) 2.7, [place] # (Auto) 0.5, Eos # (Auto) 0.4, Baso # (Auto) 0.1 I & O for Labs for Last 24 Hours: Intake & Output 01/27/23 01/28/23 01/29/23 01/30/23 23:59 23:59 23:59 23:59 Intake Total 1440 / 2440 4505 / 4505 1903 / 1903 560 / 560 Output Total 1625 / 2525 3050 / 3050 2600 / 2600 150 / 150 Balance -185 / -85 1455 / 1455 -697 / -697 410 / 410 Weight 55.905 kg 53.342 kg 57.294 kg 53.751 kg The patient's infection will respond to the chosen ABx?: Yes Is the patient receiving the right drug, dose, and route?: Yes Could a more targeted ABx be ordered?: No (PSEUDOMONAS SENSITIVE TO LEVAQUIN.)
[2023-01-30 15:43] VITALS: BP 141/79; PULSE 90; RESP 20; TEMP 36.6; O2SAT 94
--- NOTE | 2023-01-30 18:41 | PC.NURSE ---
PT IS RESTING IN BED WITH FAMILY AT BEDSIDE. PT IS STILL NON VERBAL BUT CONTINUES TO FOLLOW SIMPLE COMMANDS. GASTRIC RESIDUALS HAVE BEEN CHECKED Q4H THIS SHIFT. TUBE FEEDING RATE IS NOW AT 40 ML'S/HR. 1600 RESIDUAL CHECK WAS 5 ML'S. LUNG SOUNDS DIMINISHED WITH SOME SCATTERED RHONCHI. ABDOMEN SOFT/NON TENDER WITH ACTIVE BOWEL SOUNDS. LARGE BOWEL MOVEMENT THIS SHIFT. WILL CONTINUE TO MONITOR.
[2023-01-30 20:00] VITALS: BP 141/77; PULSE 93; RESP 18; TEMP 36.9; O2SAT 97; O2SAT 99
--- NOTE | 2023-01-30 22:59 | PC.NURSE ---
Pt. suctioned per respiratory.
[2023-01-31] VITALS: BP 130/71; PULSE 92; RESP 16; TEMP 36.6; O2SAT 97
[2023-01-31 04:00] VITALS: BP 160/84; PULSE 90; RESP 18; TEMP 36.2; O2SAT 97; BMI 15.0
--- NOTE | 2023-01-31 04:06 | PC.NURSE ---
Respiratory Therapy suctioned patient.
--- NOTE | 2023-01-31 05:11 | PC.NURSE ---
Pt. is tolerating his TF and may be able to go back to [facility] today.
[2023-01-31 07:37] LABS: Blood Urea Nitrogen 10 mg/dl (9-20); Calcium 8.3 mg/dl (8.4-10.2); Carbon Dioxide 30 mmol/L (22.0-30.0); Chloride 114 mmol/L (98-107); Creatinine Clearance Estimated 55 mL/min (50-200); Estimated Glomerular Filt Rate 215 ml/min (>60); GFR (African American) 260 ML/MIN (>60); Glucose 117 mg/dl (74-100); Potassium 3.8 mmoL/L (3.5-5.1)
[2023-01-31 07:45] LABS: Anion Gap 4.8 mEq/L (5-15); Sodium 145 mmol/L (136-145)
[2023-01-31 07:48] VITALS: BP 130/79; PULSE 84; RESP 20; TEMP 36.7; O2SAT 97
--- NOTE | 2023-01-31 08:09 | EXP.DC.SUM ---
General Admission date:: 01/23/23 Discharge date: 01/31/23 HPI HPI HPI: 67-year-old male, with several month history of significant medical compromise after an episode of respiratory arrest, cardiac arrest related to polysubstance abuse several months ago. Complicated by multiple rounds of pneumonia, subarachnoid hemorrhage, multiple episodes of sepsis. Ended up in the healthcare system and spent several weeks/months at [facility] and ended up with tracheostomy and G-tube. After several weeks there was transferred to an LTAC unit in [place]. Did not make progress and then was transferred to the [facility] here in [place] for ongoing care. He is originally from [facility] and his daughter is very involved in his care and plans to take him home once he is reached PT goals although this seems to be an extremely long-term issue at this point. He has been a [facility] for a couple of weeks, and has been relatively stable. He has been working with PT and OT. He is minimally responsive but there has been some improvement noted per his daughter in regards to communication. He is able to sit up in a Tara chair for several hours at a time and has some arm flickering movement but otherwise is essentially bedbound and immobile. He developed unusual rash yesterday on his legs and arms, and low-grade temperature. CBC was done showing white count greater than 27,000. This was a change for him. Transported to ER for further evaluation. In ER met sepsis criteria and noted to have milky drainage from his tracheostomy. Admitted for probable healthcare acquired pneumonia and sepsis. This morning he is essentially unresponsive as he was when I examined him at the halfway last week Hospital Course Hospital Course Hospital Course: Patient was admitted. Found to have Pseudomonas sepsis, and Pseudomonas pneumonia along with Pseudomonas UTI. It was pansensitive and he was treated with appropriate about excellent transition to single agent Levaquin therapy and completed 10 days of IV antibiotics. He defervesced, fevers did not return and CBC responded appropriately. Repeat blood cultures will be done today to document clearance. His big problem was handling his tube feeds. He had significant residuals and we were unable to resume his tube feeds for quite a while. We initiated erythromycin per his tube for gastric motility help, and did his Reglan IV. We also did MiraLAX to try to get stool clearance. KUB showed no evidence of obstruction. He improved and we were able to titrate his tube feeds up to a 40 mL/h rate. His goal rate at the nursing was 45. Plan to be to transfer back to the halfway today. He will need no further antibiotics. He will be on Reglan and erythromycin per his G-tube. I would like his tube feeding rate to remain at 40/h for the next 48 hours and then titrate up to 45 if he can tolerate this. I would also like him to have MiraLAX 17 g daily mixed in free water in his G-tube once daily. Wound care, PT/OT will continue. Patient's prognosis is overall extremely guarded given his significant comorbidities from his cerebrovascular accident and cardiac and respiratory arrest in the past. Exam Data for Last 24 hours Vital signs and Labs for Last 24 Hours: Temp Pulse Resp BP Pulse Ox FiO2 98.1 F 84 20 130/79 97 28 01/31/23 07:48 01/31/23 07:48 01/31/23 07:48 01/31/23 07:48 01/31/23 07:48 01/29/23 20:04 Laboratory Results - last 24 hr 01/30/23 07:16: Sodium 141, Potassium 3.5, Chloride 112 H, Carbon Dioxide 29, Anion Gap 3.5 L, BUN 8 L, Creatinine 0.40 L, Estimated Creat Clear 55, Estimated GFR 215, Est GFR ( Amer) 260, Glucose 101 H, Calcium 8.2 L 01/30/23 07:16: WBC 8.4, RBC 3.84 L, Hgb 10.3 L, Hct 32.2 L, MCV 83.9, MCH 26.8 L, MCHC 31.9, RDW 18.9 H, Plt Count 656 H, MPV 7.7, Neut % (Auto) 56.4, Lymph % (Auto) 32.2, [place] % (Auto) 5.7, Eos % (Auto) 5.1, Baso
--- NOTE | 2023-02-01 15:08 | CARE MANAGER ---
Called and spoke with Kenyon Wright [place]. She stated that patient is doing well and they received everything needed at discharge.
== END 2023-01-31 09:30 | DRG 871 ==
LOC: ER 23:20 → 2ND 23:38
PROVIDERS: Admitting Provider Internal Medicine Adolescent Medicine; Emergency Provider Emergency Medicine; PCP Internal Medicine Adolescent Medicine; Visit Provider Internal Medicine Adolescent Medicine
DX: A41.52 Sepsis due to Pseudomonas (principal); E43 Unspecified severe protein-calorie malnutrition; J15.1 Pneumonia due to Pseudomonas; Z68.1 Body mass index [BMI] 19.9 or less, adult; J95.02 Infection of tracheostomy stoma; J44.0 Chronic obstructive pulmonary disease with (acute) lower respiratory infection; N39.0 Urinary tract infection, site not specified; K56.7 Ileus, unspecified; R65.20 Severe sepsis without septic shock; I10 Essential (primary) hypertension; Y95 Nosocomial condition; F19.10 Other psychoactive substance abuse, uncomplicated; Z86.718 Personal history of other venous thrombosis and embolism; E87.6 Hypokalemia
CPT/HCPCS: 36415; 71045; 74018; 80048; 80053; 80202; 81001; 82550; 82803; 82962; 83605; 83735; 84145; 84484; 85007; 85025; 85651; 86140; 87040; 87070; 87077; 87086; 87088; 87186; 87205; 93005; 93306; 94760; 94761; 95816; 97110; 97140; 97163; 97165; 99285; C9803; J0692; J1956; J3370; U0003; U0005

== ENCOUNTER 2023-02-05 17:06 | Inpatient (IN) | payer MEDICARE, MEDICAID, SELFPAY ==
[2023-02-05] VITALS (10 sets, daily range): BP systolic 117–136; BP diastolic 66–79; PULSE 74–129; RESP 16–18; TEMP 36.6–38.6; O2SAT 95–100; BMI 25.8; BMI 18.1
--- NOTE | 2023-02-05 17:17 | XR_ITS ---
PROCEDURE INFORMATION: Exam: XR Chest Exam date and time: 02/05/2023 5:42 PM Age: 67 years old Clinical indication: Other: Declining state; Additional info: SOA TECHNIQUE: Imaging protocol: Radiologic exam of the chest. Views: 1 view. COMPARISON: CR XR CHEST PORTABLE 01/24/2023 10:12 AM FINDINGS: Tubes, catheters and devices: Tracheostomy cannula remains in place. Lungs: There has been interval development of bilateral lower lobe infiltrates, moderate on the left and mild on the right. Previously visualized rounded opacity in the right mid lung has apparently resolved. Pleural spaces: Unremarkable. No pleural effusion. No pneumothorax. Heart/Mediastinum: Unremarkable. No cardiomegaly. Bones/joints: Unremarkable. IMPRESSION: Interval development of bilateral lower lobe pneumonia/pneumonitis, greater on the left.
--- NOTE | 2023-02-05 17:19 | CT_ITS ---
PROCEDURE INFORMATION: Exam: CT Head Without Contrast Exam date and time: 02/05/2023 5:56 PM Age: 67 years old Clinical indication: Other: Free abdominal air; Additional info: AMS TECHNIQUE: Imaging protocol: Computed tomography of the head without contrast. Radiation optimization: All CT scans at this facility use at least one of these dose optimization techniques: automated exposure control; mA and/or kV adjustment per patient size (includes targeted exams where dose is matched to clinical indication); or iterative reconstruction. REPORTING DATA: Count of CT and Cardiac NM exams in prior 12 months: This patient has received 0 known CTs and 0 known cardiac nuclear medicine studies in the 12 months prior to the current study. COMPARISON: No relevant prior studies available. FINDINGS: Brain: There is significant generalized cerebral atrophy. Prominent areas of encephalomalacia are present in the bilateral frontal lobes, right temporal lobe and right parietal lobe. Diffuse white matter hypoattenuation is compatible with chronic microvascular ischemic change. No intracranial mass, hemorrhage or definite evidence of acute infarcts. Cerebral ventricles: There is moderate diffuse ventriculomegaly. Paranasal sinuses: Visualized sinuses are unremarkable. No fluid levels. Mastoid air cells: Visualized mastoid air cells are well aerated. Bones/joints: Unremarkable. No acute fracture. Soft tissues: Unremarkable. IMPRESSION: 1. Evidence of multiple bilateral cerebral infarcts. No definite evidence of acute infarcts or evidence of intracranial hemorrhage 2. Moderate diffuse ventriculomegaly of indeterminate age, likely related to cerebral atrophy. Can not exclude normal pressure hydrocephalus
[2023-02-05 17:37] LABS: Coronavirus 19, PCR Not Detected (NotDetected); Influenza A, PCR Not Detected (NotDetected); Influenza B, PCR Not Detected (NotDetected)
[2023-02-05 17:41] LABS: Basophils % 0.3 % (0.1-2.0); Eosinophils # 0.1 K/mm3 (0.0-0.4); Eosinophils % 0.6 % (0.1-12.0); Hematocrit 35.5 % (42.0-52.0); Hemoglobin 10.9 g/dL (14.1-18.0); Lymphocytes # 2.4 K/mm3 (0.7-4.5); Lymphocytes % 22.2 % (10-50); Mean Corpuscular HGB Conc 30.7 g/dL (31.8-35.4); Mean Corpuscular Hemoglobin 26.4 pg (27.0-31.2); Mean Platelet Volume 6.6 fl (7.4-10.4); Monocytes # 0.5 K/mm3 (0.1-1.0); Monocytes % 4.7 % (1.7-9.3); Neutrophils # 7.7 K/mm3 (1.8-7.8); Neutrophils % 72.2 % (37.0-80.0); Platelet Count 387 K/mm3 (142-424); Red Blood Count 4.12 M/mm3 (4.60-6.20); Red Cell Distribution Width 19.3 % (11.5-17.5); White Blood Count 10.7 K/mm3 (4.8-10.8)
[2023-02-05 17:44] LABS: Chloride 107 mmol/L (98-107); Potassium 4.1 mmoL/L (3.5-5.1); Sodium 143 mmol/L (136-145)
[2023-02-05 17:46] LABS: Alanine Aminotransferase 21 U/L (12-78); Aspartate Amino Transferase 29 U/L (17-59); Blood Urea Nitrogen 19 mg/dl (9-20); Creatinine Clearance Estimated 84 mL/min (50-200); Estimated Glomerular Filt Rate 166 ml/min (>60); GFR (African American) 201 ML/MIN (>60)
[2023-02-05 17:47] LABS: Albumin Level 3.4 g/dl (3.5-5.0); Alkaline Phosphatase 96 U/L (38-126); Anion Gap 10.1 mEq/L (5-15); Bilirubin,Total 0.4 mg/dl (0.2-1.3); Calcium 8.4 mg/dl (8.4-10.2); Carbon Dioxide 30 mmol/L (22.0-30.0); Globulin 3.5 g/dL (1.3-3.2); Glucose 121 mg/dl (74-100); Lactic Acid 1.8 mmol/L (0.7-2.1); Magnesium 2.1 mg/dl (1.6-2.3); Total Protein,Serum 6.9 g/dl (6.3-8.2)
[2023-02-05 17:48] LABS: VBG HCO3 24.7 mmol/L (23-30); VBG Oxygen Saturation 81.2 % (50-70); VBG PCO2 39.7 mmol/L (35-51); VBG PH 7.41 mmol/L (7.31-7.41); VBG PO2 46.8 mmol/L (28-40); VBG Total CO2 25.9 mmol/L (23-27)
--- NOTE | 2023-02-05 17:51 | PC.NURSE ---
Patient going to CT
[2023-02-05 17:55] LABS: Microscopic, Urine URINE MICROSCOPIC (MICROSCOPIC)
[2023-02-05 18:00] LABS: Troponin I < 0.01 ng/ml (0.00-0.034)
--- NOTE | 2023-02-05 18:02 | PC.NURSE ---
Pt. back from CT
--- NOTE | 2023-02-05 18:06 | HMH.EDGENADL ---
Discharge Plan Disposition Chief Complaint: Shortness of Breath/Dyspnea Discharge ED Provider: Brandie Buck General Adult HPI General Chief complaint: Shortness of Breath/Dyspnea Stated complaint: resp problems Time Seen by Provider: 02/05/23 17:06 Mode of Arrival: EMS Source of Information: Patient Limitations: No Limitations Description of Symptoms (Recalled from ER Triage Doc. by RN): pt to ED from [place] via ems. per skilled nursing staff the patient was SOB with low oxygen sats today and breathing too fast. pt family wanted him shipped out for evaluation. pt mental status is reported to be at baseline at this time per EMS and skilled nursing staff History of Present Illness HPI narrative: Patient is a 67-year-old male with a history of recent hemorrhagic stroke about 4 months ago who is trach dependent/has a PEG tube who presents with tachypnea and fever. Patient is at [place], per the skilled nursing the patient seemed short of breath and oxygen was low . His family also noted he was breathing faster than normal. Per notes, his baseline is tracking and patient has been less responsive. No further history is able to be obtained Related Data Home Medications Medication Instructions Recorded Confirmed acetaminophen 160 mg oral powder 160 mg PO Q6HP PRN mild pain 01/22/23 01/22/23 packet bromocriptine 2.5 mg tablet 2.5 mg PO DAILY parkinson's disease 01/22/23 01/22/23 budesonide 0.5 mg/2 mL suspension 0.5 mg inhalation BID Breathing 01/22/23 01/22/23 for nebulization problems chlorhexidine gluconate 0.12 % 15 ml PO BID thrush 01/22/23 01/23/23 mouthwash collagenase clostridium histo. 250 0 unit topical BID wound care 01/22/23 01/23/23 unit/gram topical ointment (Santyl) ipratropium 0.5 mg-albuterol 3 mg 3 ml inhalation Q6HP PRN breathing 01/22/23 01/23/23 (2.5 mg base)/3 mL nebulization problems soln magnesium oxide 800 mg PO DAILY Supplement 01/22/23 01/22/23 menthol 0.44 %-zinc oxide 20.6 % 1 applic topical TID wound care 01/22/23 01/23/23 topical ointment in packet (Calmoseptine) pantoprazole 40 mg granules 40 mg PO DAILY acid reflux 01/22/23 01/22/23 delayed-release for susp in packet sennosides 8.6 mg tablet (senna) 8.6 mg PO DAILY constipation 01/22/23 01/23/23 sodium chloride 1 gram tablet 2 g PO TID electrolytes 01/22/23 01/22/23 geriatric multivitamin-min 1 tab PO DAILY Supplement 01/23/23 01/23/23 ipratropium 0.5 mg-albuterol 3 mg 3 ml inhalation TID Breathing 01/23/23 01/23/23 (2.5 mg base)/3 mL nebulization problems soln polyethylene glycol 3350 17 gram 17 g PO DAILY constipation 01/23/23 01/23/23 oral powder packet (Miralax) scopolamine base 1 mg over 3 days 1 patch transdermal Q72H secretions 01/23/23 01/23/23 transdermal patch (Transderm-Scop) sodium chloride 3 % for 4 ml inhalation BID Breathing 01/23/23 01/23/23 nebulization problems zinc sulfate 220 mg capsule 220 mg PO HS wound care 01/23/23 01/23/23 Previous Rx's Medication Instructions Recorded erythromycin ethylsuccinate 200 200 mg (5 mL) PO QID 30 days #600 01/31/23 mg/5 mL oral powder for suspension mL (E.E.S. Granules) metoclopramide HCl 5 mg/5 mL oral 5 mg (5 mL) PO QID 30 days #600 mL 01/31/23 solution Allergies Allergy/AdvReac Type Severity Reaction Status Date / Time No Known Allergies Allergy Verified 01/22/23 22:04 [facility] Disclaimer: The information contained in this section may have been updated after the patient was seen, as this information can be updated by other users. Medical History Acute pulmonary edema COPD (chronic obstructive pulmonary disease) Dysphagia Elevation of levels of liver transaminase levels Essential hypertension Hemorrhagic stroke History of embolism Pneumonitis due to inhalation of other solids and liquids Surgical History Postsurgical presence
--- NOTE | 2023-02-05 18:16 | PC.NURSE ---
contacted RT to suction pt.
[2023-02-05 18:42] LABS: Appearance,Urine CLEAR (Clear); Bilirubin,Urine Negative (Negative); Blood, Urine Negative (Negative); Color,Urine YELLOW (Yellow); Glucose,Urine (UA) Negative (Negative); Ketones,Urine Negative (Negative); Leukocyte Esterase,Urine Negative (Negative); Nitrate,Urine Negative (Negative); Protein,Urine 1+ (Negative); Specific Gravity, Urine 1.015 (1.005-1.030)
[2023-02-05 18:50] LABS: Yeast,Urine 4+ /lpf
--- NOTE | 2023-02-05 19:52 | PC.NURSE ---
CALLED HOUSE FOR PT ADMISSION
--- NOTE | 2023-02-05 20:25 | EXP.HP ---
History of Present Illness *Admission Date: 02/05/23 *Reason for visit:: Fevers, Tachycardia, Tacypnea *History of present illness: Mr. Sanches is a 67-year-old male who is a resident of [facility]. 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 He presented to [facility] by EMS from [facility] due to Fevers, Tachypnea and Tachycardia. Information for the history and physical was obtained from the patient's daughter who was at bedside. She reports that she was at the [facility] when the patient became febrile, tachycardia and tacypnea, she reported copious amounts of phlegm coming from his trach site and reported that he had a lot of residual of tube feeds. She requested that he be sent to the ER for evaluation. In the ER, Cxray showed bilateral lobe consolidations with the greatest on the left. HR was 110, Temperature was 100.9. CBC and CMP were unremarkable and Covid and Flu testing were negative. The patient will be admitted with initial impression: SIRS and Pneumonia. Cultures were drawn in the ER. He has been placed on Zosyn empirically. The plan of care was discussed with the patient's daughter on admission. She verbalized understanding and agreement with the plan of care. [facility] Disclaimer: The information contained in this section may have been updated after the patient was seen, as this information can be updated by other users. Medical History Acute pulmonary edema COPD (chronic obstructive pulmonary disease) Dysphagia Elevation of levels of liver transaminase levels Essential hypertension Hemorrhagic stroke History of embolism Pneumonitis due to inhalation of other solids and liquids Surgical History Postsurgical presence of cerebrospinal fluid drainage device Family History Other No significant family history Social History (Updated 02/05/23 @ 23:15 by Yvette Cobb RN) Smoking Status: Never smoker alcohol intake: former current occupational status: disabled Travel in the last 8 weeks: None household members: other housing: assisted living facility marital status: diet: other during the past year weight has: decreased > 10 lbs physical activity: none special shade needs: No agree to transfusion: No Review of Systems Review of Systems Review of systems:: unable to obtain Meds Home Medications and Allergies Home Medications Medication Instructions Recorded Confirmed Type bromocriptine 2.5 mg tablet 2.5 mg PO DAILY parkinson's disease 01/22/23 02/06/23 History budesonide 0.5 mg/2 mL suspension 0.5 mg inhalation BID Breathing 01/22/23 02/06/23 History for nebulization problems chlorhexidine gluconate 0.12 % 15 ml PO BID thrush 01/22/23 02/06/23 History mouthwash ipratropium 0.5 mg-albuterol 3 mg 3 ml inhalation Q6HP PRN Shortness 01/22/23 02/06/23 History (2.5 mg base)/3 mL nebulization Of Breath soln sennosides 8.6 mg tablet (senna) 8.6 mg PO DAILY constipation 01/22/23 02/06/23 History sodium chloride 1 gram tablet 2 g PO TID electrolytes 01/22/23 02/06/23 History geriatric multivitamin-min 1 tab PO DAILY Supplement 01/23/23 02/06/23 History polyethylene glycol 3350 17 gram 17 g PO DAILY constipation 01/23/23 02/06/23 History oral powder packet (Miralax) scopolamine base 1 mg over 3 days 1 patch transdermal Q72H Nausea & 01/23/23 02/06/23 History transdermal patch (Transderm-Scop) vomiting sodium chloride 3 % for 4 ml inhalation BID Breathing 01/23/23 02/06/23 History nebulization problems zinc sulfate 220 mg capsule 220 mg PO HS wound care 01/23/23 02/06/23 History acetaminophen 500 mg tablet 500 mg PO Q6HP PRN Fever Or Pain 02/06/23 02/06/23 Hi
--- NOTE | 2023-02-05 21:01 | PC.NURSE ---
REPORT CALLED TO BESSIE MATOS
--- NOTE | 2023-02-05 21:10 | PC.NURSE ---
pt arrived to floor at this time
--- NOTE | 2023-02-05 23:22 | PC.NURSE ---
pt nonverbal and unable to answer questions, no family present, admission based on medical records.
[2023-02-06] VITALS (11 sets, daily range): BP systolic 94–140; BP diastolic 43–82; PULSE 74–108; RESP 14–20; TEMP 36.1–37.3; O2SAT 89–98; BMI 18.1
[2023-02-06 00:08] LABS: Troponin I 0.02 ng/ml (0.00-0.034)
--- NOTE | 2023-02-06 09:04 | DIET.NUTRFU ---
Addendum entered by Joi Alarcon RD, LD 02/06/23 09:10: Start TF at 10ml/hr of nutren 2.0 with goal rate of 45ml/hr increase slowly, may benefit from reglan and erthromycin if having residuals. Flush with 50ml Q6H to provide 200ml/day. Will monitor tolerance. Once at goal rate will add prostat to provide additional nutrition for wound healing. Nutritional needs are 1600-1700kcal and 74-86gm protein with 1700ml/day, goal rate would provide 2160kcal, 86gm protein and 759ml formula water. If TF tolerance cannot be accomplished with nutren 2.0 maybe beneficial to switch to Peptamen TF formula which maybe better tolerated, will review our availability of product. Original Note: RD reviewed chart for TF recommendations. Patient was recently here, he continues to trigger for severe PCM based on unable to continuious reach his nutritional needs via TF. According to admission note daughter reported copious amounts of phlegm from trach and a lot of residuals from TF. Recent admit we had him on regland and erthromycin to help with GI mobility. Upon discharge on 01/31 he was tolerating 40ml/hr of the Nutren 2.0. He does have skin breakdown, nutritional needs are high to promote healing. CBW is 57kg, nonsignificant wt changes. Labs on 02/05 hydration labs WNL. IVF started, will need to adjust flush based on IVF. No BM noted at this point will cpntinue to monitor urine and BM output
--- NOTE | 2023-02-06 10:01 | P.CONPHA_ITS ---
Pharmacy Intervention Comments: MEDICATION RECONCILIATION COMPLETED ON PATIENT USING MAR FROM [facility]. -DELANEY PÉREZ, CODYD
--- NOTE | 2023-02-06 10:01 | HMH.PHAINT1 ---
Pharmacy Intervention Comments: MEDICATION RECONCILIATION COMPLETED ON PATIENT USING MAR FROM [facility]. -DELANEY PÉREZ, CODYD
--- NOTE | 2023-02-06 14:00 | PC.NURSE ---
residual 20 ml. made aware ok'd to continue tube feeds at 10 ml
--- NOTE | 2023-02-06 18:33 | EXP.ACUTE.PN ---
Subjective *Date: 02/06/23 *Time: 19:14 Interval history: Patient remained stable overnight. Resuming tube feeds this morning. Fevers defervesced overnight. Still on trach collar at 40%. Blood pressure stable. Respiratory performing suctioning from trach. Appears comfortable on exam. Opens eyes to verbal and painful stimuli but no meaningful response on exam at this time. Medical Exam Vital signs and Labs for Last 24 Hours: Vital Signs Temp Pulse Pulse Resp BP BP Pulse Ox 02/06/23 15:17 98.0 F 89 20 112/66 90 L 02/06/23 12:06 88 02/06/23 12:06 88 02/06/23 12:06 90 L 02/06/23 11:14 97.0 F L 86 16 99/61 L 93 L 02/06/23 08:00 02/06/23 07:48 98.1 F 86 14 94/43 L 94 L 02/06/23 06:57 84 02/06/23 06:57 86 02/06/23 06:57 96 02/06/23 04:00 97.6 F 88 18 94/53 L 02/06/23 00:00 98.8 F 102 H 18 100/52 L 98 02/05/23 23:25 02/05/23 23:24 80 02/05/23 23:24 84 02/05/23 21:00 101.4 F H 74 18 119/70 96 02/05/23 21:11 98 F 118 H 18 121/73 02/05/23 21:00 121 H 121/73 97 02/05/23 20:30 123 H 117/73 98 02/05/23 20:00 128 H 136/79 100 02/05/23 19:30 129 H 130/76 96 02/05/23 19:00 129 H 129/76 95 02/05/23 18:30 125 H 124/76 95 FiO2 02/06/23 15:17 02/06/23 12:06 02/06/23 12:06 02/06/23 12:06 40 02/06/23 11:14 02/06/23 08:00 40 02/06/23 07:48 02/06/23 06:57 02/06/23 06:57 02/06/23 06:57 60 02/06/23 04:00 02/06/23 00:00 02/05/23 23:25 60 02/05/23 23:24 02/05/23 23:24 02/05/23 21:00 02/05/23 21:11 02/05/23 21:00 02/05/23 20:30 02/05/23 20:00 02/05/23 19:30 02/05/23 19:00 02/05/23 18:30 Intake and Output 02/06/23 02/06/23 02/06/23 07:59 15:59 23:59 Output Total 375 / 575 Balance -375 / -575 Output: Output, Urine Amount 375 / 575 Other: Number of Unmeasured Voids 0 1 Number of Bowel Movements 1 Weight Patient Weight 02/07/23 00:59 Weight 57.691 kg Laboratory Results - last 24 hr 02/05/23 17:28: WBC 10.7, RBC 4.12 L, Hgb 10.9 L, Hct 35.5 L, MCV 86.0, MCH 26.4 L, MCHC 30.7 L, RDW 19.3 H, Plt Count 387, MPV 6.6 L, Neut % (Auto) 72.2, Lymph % (Auto) 22.2, [place] % (Auto) 4.7, Eos % (Auto) 0.6, Baso % (Auto) 0.3, Neut # (Auto) 7.7, Lymph # (Auto) 2.4, [place] # (Auto) 0.5, Eos # (Auto) 0.1, Baso # (Auto) 0.0 02/05/23 17:28: Sodium 143, Potassium 4.1, Chloride 107, Carbon Dioxide 30, Anion Gap 10.1, BUN 19, Creatinine 0.50 L, Estimated Creat Clear 84, Estimated GFR 166, Est GFR ( Amer) 201, Glucose 121 H, Calcium 8.4, Magnesium 2.1, Total Bilirubin 0.4, AST 29, ALT 21, Alkaline Phosphatase 96, Troponin I < 0.01, Total Protein 6.9, Albumin 3.4 L, Globulin 3.5 H, Albumin/Globulin Ratio 1.0 L 02/05/23 17:28: Lactate 1.8 02/05/23 17:28: SARS-CoV-2 (PCR) Not detected, Influenza A Untype (PCR) Not detected, Influenza Type B (PCR) Not detected 02/05/23 17:29: VBG pH 7.41, VBG pCO2 39.7, VBG pO2 46.8 H, VBG HCO3 24.7, VBG Total CO2 25.9, VBG O2 Saturation 81.2 H, VBG Base Excess 0.0 02/05/23 17:50: Urine Color Yellow, Urine Appearance Clear, Urine pH 8.0, Ur Specific [place] 1.015, Urine Protein 1+, Urine Glucose (UA) Negative, Urine Ketones Negative, Urine Blood Negative, Urine Nitrate Negative, Urine Bilirubin Negative, Urine Urobilinogen 1.0, Ur Leukocyte Esterase Negative, Urine RBC None, Urine WBC 5-10, Ur Squamous Epith Cells None, Urine Bacteria None, Urine Yeast 4+ 02/05/23 23:40: Troponin I 0.02 I & O for Labs for Last 24 Hours: Intake & Output 02/03/23 02/04/23 02/05/23 02/07/23 23:59 23:59 23:59 00:59 Output Total 575 / 575 Balance -575 / -575 Weight 57.663 kg 57.691 kg Microbiology Reports for the Last 24 Hours: Microbiology 02/05/23 17:49 Urine,Catheterized Urine Culture - Preliminary NO GROWTH AFTER 24 HOURS 02/05/23
[2023-02-06 19:17] LABS: Chloride 108 mmol/L (98-107); Potassium 3.7 mmoL/L (3.5-5.1); Sodium 144 mmol/L (136-145)
[2023-02-06 19:20] LABS: Alanine Aminotransferase 19 U/L (12-78); Albumin Level 3.1 g/dl (3.5-5.0); Albumin/Globulin Ratio 0.9 (1.1-1.8); Alkaline Phosphatase 98 U/L (38-126); Anion Gap 10.7 mEq/L (5-15); Aspartate Amino Transferase 26 U/L (17-59); Bilirubin,Total 0.7 mg/dl (0.2-1.3); Blood Urea Nitrogen 19 mg/dl (9-20); Carbon Dioxide 29 mmol/L (22.0-30.0); Creatinine Clearance Estimated 59 mL/min (50-200); Estimated Glomerular Filt Rate 166 ml/min (>60); GFR (African American) 201 ML/MIN (>60); Globulin 3.4 g/dL (1.3-3.2); Total Protein,Serum 6.5 g/dl (6.3-8.2)
[2023-02-06 19:21] LABS: Calcium 8.3 mg/dl (8.4-10.2); Glucose 94 mg/dl (74-100)
[2023-02-06 19:25] LABS: Basophils % 0.4 % (0.1-2.0); Eosinophils # 0.1 K/mm3 (0.0-0.4); Eosinophils % 0.8 % (0.1-12.0); Hematocrit 30.4 % (42.0-52.0); Hemoglobin 9.6 g/dL (14.1-18.0); Lymphocytes # 1.9 K/mm3 (0.7-4.5); Lymphocytes % 17.1 % (10-50); Mean Corpuscular HGB Conc 31.6 g/dL (31.8-35.4); Mean Corpuscular Hemoglobin 26.1 pg (27.0-31.2); Mean Corpuscular Volume 82.7 fl (80-94); Monocytes # 0.5 K/mm3 (0.1-1.0); Monocytes % 4.4 % (1.7-9.3); Neutrophils # 8.7 K/mm3 (1.8-7.8); Neutrophils % 77.4 % (37.0-80.0); Platelet Count 443 K/mm3 (142-424); Red Blood Count 3.68 M/mm3 (4.60-6.20); Red Cell Distribution Width 19.4 % (11.5-17.5); White Blood Count 11.2 K/mm3 (4.8-10.8)
[2023-02-07] VITALS (9 sets, daily range): BP systolic 101–127; BP diastolic 57–77; PULSE 77–108; RESP 18–24; TEMP 36.6–37.7; O2SAT 92–100; BMI 18.3
--- NOTE | 2023-02-07 04:00 | PC.NURSE ---
pt in no acute distress noted, pt will open eyes when name called or touched, pt unable to speak at this time, pt with thick white/yellowish sputum from trach, pt residuals noted to be 60ml with tube feeds infusing at 10ml/ hr. f/c to [facility] with clear brandyn urine noted, no edema, lung sounds with bilateral rhonchi noted, 02 sats 97% with 02 via trach collar, unstageable decubitis to coccyx noted, pt is turn q2.
[2023-02-07 06:25] LABS: Alanine Aminotransferase 16 U/L (12-78); Albumin Level 2.8 g/dl (3.5-5.0); Albumin/Globulin Ratio 0.9 (1.1-1.8); Alkaline Phosphatase 93 U/L (38-126); Anion Gap 10.5 mEq/L (5-15); Aspartate Amino Transferase 23 U/L (17-59); Bilirubin,Total 0.5 mg/dl (0.2-1.3); Blood Urea Nitrogen 18 mg/dl (9-20); Calcium 7.7 mg/dl (8.4-10.2); Carbon Dioxide 27 mmol/L (22.0-30.0); Chloride 107 mmol/L (98-107); Creatinine Clearance Estimated 60 mL/min (50-200); Estimated Glomerular Filt Rate 135 ml/min (>60); GFR (African American) 163 ML/MIN (>60); Globulin 3.2 g/dL (1.3-3.2); Glucose 82 mg/dl (74-100); Magnesium 2.1 mg/dl (1.6-2.3); Phosphorous 4.6 mg/dl (2.5-4.5); Potassium 3.5 mmoL/L (3.5-5.1); Sodium 141 mmol/L (136-145)
[2023-02-07 06:32] LABS: C-Reactive Protein 257.6 mg/L (0-4)
[2023-02-07 06:41] LABS: Basophils % 0.1 % (0.1-2.0); Eosinophils # 0.1 K/mm3 (0.0-0.4); Eosinophils % 0.7 % (0.1-12.0); Hematocrit 28.3 % (42.0-52.0); Hemoglobin 8.7 g/dL (14.1-18.0); Lymphocytes # 1.1 K/mm3 (0.7-4.5); Lymphocytes % 13.6 % (10-50); Mean Corpuscular HGB Conc 30.8 g/dL (31.8-35.4); Mean Corpuscular Volume 84.6 fl (80-94); Mean Platelet Volume 7.5 fl (7.4-10.4); Monocytes # 0.4 K/mm3 (0.1-1.0); Monocytes % 4.7 % (1.7-9.3); Neutrophils # 6.8 K/mm3 (1.8-7.8); Neutrophils % 80.8 % (37.0-80.0); Platelet Count 423 K/mm3 (142-424); Red Blood Count 3.35 M/mm3 (4.60-6.20); Red Cell Distribution Width 19.3 % (11.5-17.5); White Blood Count 8.4 K/mm3 (4.8-10.8)
--- NOTE | 2023-02-07 07:45 | EXP.PHA.CONS ---
Pharmacy Consult Date: 02/07/23 Time: 07:45 Referring provider: DR SCHAFFER Reason for Consult:: VANCOMYCIN DOSING CONSULT Allergies Allergy/AdvReac Type Severity Reaction Status Date / Time No Known Allergies Allergy Verified 01/22/23 22:04 Home Medications Medication Instructions Recorded Confirmed Type bromocriptine 2.5 mg tablet 2.5 mg PO DAILY parkinson's disease 01/22/23 02/06/23 History budesonide 0.5 mg/2 mL suspension 0.5 mg inhalation BID Breathing 01/22/23 02/06/23 History for nebulization problems chlorhexidine gluconate 0.12 % 15 ml PO BID thrush 01/22/23 02/06/23 History mouthwash ipratropium 0.5 mg-albuterol 3 mg 3 ml inhalation Q6HP PRN Shortness 01/22/23 02/06/23 History (2.5 mg base)/3 mL nebulization Of Breath soln sennosides 8.6 mg tablet (senna) 8.6 mg PO DAILY constipation 01/22/23 02/06/23 History sodium chloride 1 gram tablet 2 g PO TID electrolytes 01/22/23 02/06/23 History geriatric multivitamin-min 1 tab PO DAILY Supplement 01/23/23 02/06/23 History polyethylene glycol 3350 17 gram 17 g PO DAILY constipation 01/23/23 02/06/23 History oral powder packet (Miralax) scopolamine base 1 mg over 3 days 1 patch transdermal Q72H Nausea & 01/23/23 02/06/23 History transdermal patch (Transderm-Scop) vomiting sodium chloride 3 % for 4 ml inhalation BID Breathing 01/23/23 02/06/23 History nebulization problems zinc sulfate 220 mg capsule 220 mg PO HS wound care 01/23/23 02/06/23 History acetaminophen 500 mg tablet 500 mg PO Q6HP PRN Fever Or Pain 02/06/23 02/06/23 History albuterol sulfate 0.63 mg/3 mL 0.63 mg inhalation TID Breathing 02/06/23 02/06/23 History solution for nebulization problems amantadine HCl 100 mg capsule 100 mg PO DAILY PARKINSONS 02/06/23 02/06/23 History erythromycin ethylsuccinate 200 200 mg PO QID GASTROPARESIS 02/06/23 02/06/23 History mg/5 mL oral powder for suspension (E.E.S. Granules) ipratropium bromide 0.02 % 2.5 ml inhalation TID Breathing 02/06/23 02/06/23 History solution for inhalation problems magnesium hydroxide 800 mg/5 mL 800 mg PO DAILY Supplement 02/06/23 02/06/23 History oral suspension metoclopramide HCl 5 mg/5 mL oral 5 mg PO QID GERD 02/06/23 02/06/23 History solution omeprazole 40 mg capsule,delayed 40 mg PO HS GERD 02/06/23 02/06/23 History release New Prescriptions to Start Prescriptions: Height: 1.78 m Weight: 58.173 kg Laboratory Results:: Laboratory Results - last 24 hr 02/06/23 19:00: WBC 11.2 H, RBC 3.68 L, Hgb 9.6 L, Hct 30.4 L, MCV 82.7, MCH 26.1 L, MCHC 31.6 L, RDW 19.4 H, Plt Count 443 H, MPV 8.0, Neut % (Auto) 77.4, Lymph % (Auto) 17.1, [place] % (Auto) 4.4, Eos % (Auto) 0.8, Baso % (Auto) 0.4, Neut # (Auto) 8.7 H, Lymph # (Auto) 1.9, [place] # (Auto) 0.5, Eos # (Auto) 0.1, Baso # (Auto) 0.0 02/06/23 19:00: Sodium 144, Potassium 3.7, Chloride 108 H, Carbon Dioxide 29, Anion Gap 10.7, BUN 19, Creatinine 0.50 L, Estimated Creat Clear 59, Estimated GFR 166, Est GFR ( Amer) 201, Glucose 94, Calcium 8.3 L, Total Bilirubin 0.7, AST 26, ALT 19, Alkaline Phosphatase 98, Total Protein 6.5, Albumin 3.1 L, Globulin 3.4 H, Albumin/Globulin Ratio 0.9 L 02/07/23 05:15: WBC 8.4, RBC 3.35 L, Hgb 8.7 L, Hct 28.3 L, MCV 84.6, MCH 26.0 L, MCHC 30.8 L, RDW 19.3 H, Plt Count 423, MPV 7.5, Neut % (Auto) 80.8 H, Lymph % (Auto) 13.6, [place] % (Auto) 4.7, Eos % (Auto) 0.7, Baso % (Auto) 0.1, Neut # (Auto) 6.8, Lymph # (Auto) 1.1, [place] # (Auto) 0.4, Eos # (Auto) 0.1, Baso # (Auto) 0.0 02/07/23 05:15: Sodium 141, Potassium 3.5, Chloride 107, Carbon Dioxide 27, Anion Gap 10.5, BUN 18, Creatinine 0.60 L, Estimated Creat Clear 60, Estimated GFR 135, Est GFR ( Amer) 163, Glucose 82, Calcium 7.7 L, Phosphorus 4.6 H, Magnesium 2.1, Total Bilirubin 0.5, AST 23, ALT 16, Alkaline Phosphatase 93, C-Reactive Protein 257.6 H, Total Protein 6.0 L, Albumin 2.8 L, Globulin 3.2, Albumin/Globulin Ratio 0.9 L Medical History: Medical History (Updated 0
--- NOTE | 2023-02-07 08:04 | XR_ITS ---
FINAL REPORT CLINICAL HISTORY: hypoxia, pneumonia FINDINGS: A tracheostomy tube is present. The heart size is normal. The mediastinum is within normal limits. The lungs are hyperinflated consistent with COPD. There are bibasilar opacities could represent atelectasis or pneumonia. There is no pleural effusion. There is no pneumothorax. The bony thorax is intact. IMPRESSION: Bibasilar opacities could represent atelectasis or pneumonia. Reviewed, Interpreted and Dictated by Teddy Torres III, MD Transcribed by Sukhwinder Cantu Authenticated and [facility]
--- NOTE | 2023-02-07 12:41 | HMH.PTEV ---
Physical Therapy Evaluation Rehab PT IP Evaluation Start: 02/07/23 10:58 Freq: ONCE Status: Active Protocol: Document 02/07/23 12:36 TRISH (Rec: 02/07/23 12:41 PHOJCARLOS [id number]) Subjective/History History History 67 yowm adm to [facility] with significant deficits after CVA who is ns home resident and dependent for mobility at baseline. Adm for PNA at this time, tube feeds via PEG at baseline and trach which limits all speech. He does nod head for yes/no answers to question intermittently. He also presents with chronic sacral pressure injury that has been present since well before adm. Subjective Subjective Pt nods no when asked if palpation of wound was painful . Rehab PT IP Eval Objective Appearance Patient Behavior Appropriate,Confused,Patient Baseline Patient Orientation Person Difficulty following instructions moderate Speech Pattern No Speech,Patient Baseline Ambulation Patient Able to Ambulate No Balance Ability to Arise Unable Sitting Balance Leans or slides in chair Dynamic Sitting Balance Ability Zero Transfers Bed Transfer Ability Total/Dependent (100%) ROM All Extremities PT ROM Status WFL MMT All Extremities PT MMT ABN Abnormal MMT Grade 1/5 at best Rehab PT IP prob,goals,plan Problems Date of Evaluation: 02/07/23 PT IP Problems Bed Mobility,Transfers Rehab Potential Rehab Potential Fair Plan PT Intervention Plan Bed Mobility,Therapeutic Exercise PT Plan Frequency Daily Duration LOS Discharge Goals Bed Transfer Ability Total/Dependent (100%) Discharge Plan PT Discharge Plan Pt is most appropriate to return to SNF once medically stable. G -code Required No Eval Complexity Eval Charge Codes 39175 - High Complexity PHYSICIAN CERTIFICATION: I certify the specified therapy services for Mitul Sanches are required, authorized, and reviewed every 30 days.
--- NOTE | 2023-02-07 12:45 | HMH.PTWOUND ---
Rehab Inpt Wound Evaluation Rehab IP Wound Evaluation Start: 02/07/23 10:58 Freq: ONCE Status: Active Protocol: Document 02/07/23 12:41 PHORCOLETTE (Rec: 02/07/23 12:44 PHORNE [id number]) Rehab PT Wound Assessment Subjective Subjective 67 yowm adm to [facility] with significant deficits after CVA who is [facility] home resident and dependent for mobility at baseline. Adm for PNA at this time, tube feeds via PEG at baseline and trach which limits all speech. He does nod head for yes/no answers to question intermittently. He also presents with chronic sacral pressure injury that has been present since well before adm. Wound Sacrum Wound Type Pressure Ulcer Is This a Chronic Wound Yes Wound Staging Unstageable Query Text:Stage I - Unbroken, red skin, no blanching. Stage II - Skin broken, superficial skin loss involving epidermis alone or also dermis. Partial loss of skin layers. Stage III - Pressure area involves epidermis, dermis and subcutaneous tissue, full thickness skin loss. Stage IV - Pressure area involves epidermis, subcutaneous tissue, bone and other supportive tissue. Full thickness skin loss with extensive destruction of underlying tissue and structures. Wound Length (cm) 6.0 Wound Width (cm) 6.8 Wound Depth (cm) 0.2 Wound Bed Appearance Dusky Red,Yellow,Slough, Necrotic Percentage Granulated (%) 50 Percentage of Slough (%) 50 Wound Margins Description Indistinct Surrounding Tissue Appearance [place],Purple,Indurated Wound Drainage Description Serosanguineous,Purulent Drainage Amount Moderate Drainage Odor Foul Odor Dressing Status Changed,Soiled Wound Topical Solution/Irrigant Saline Irrigant Primary Dressing Composite Comment optifoam sacrum Wound Debridement Method Mechanical Wound Debridement Amount of Tissue Minimal Removed Dressing Change Patient Tolerance Tolerated Well Plan/Recommendation Comment [facility] to manage wound care at this time with above dressing
--- NOTE | 2023-02-07 12:50 | DIET.NUTRFU ---
Reviewed patients tubefeeding regimen with nursing and provider in rounds with IDT.He continues to have residuals 60-65ml at only 10ml/hr of Nutren 2.0. The reglan is in place, provider will order erythromycin today, but afraid of developing resistance unable to use technician terminal and repeater. Wants to continue current TF formula, afraid if started a special/expensive formula [facility] would not be able to continue. Will continue sx to determine if a J-Tube at this time would be appropriate and medically feasible. His respiratory status is back to baseline. His LBM was 3/13 and wt is stable. Unable to add prostat for wound healing d/t not tolerating TF well. provider may review POC goals with daughter she seems unrealistic about taking him home eventually. Will continue current TF order of Nutren 2.0 at 10ml/hr if residuals improve can increase as tolerated. Labs reviewed, he did receive 1000ml of lactated ringers 02/06, no IVF fluids ordered for today.
--- NOTE | 2023-02-07 13:52 | EXP.ACUTE.PN ---
Subjective *Date: 02/07/23 *Time: 17:17 Interval history: Patient more alert on exam today. Remained afebrile overnight. No vomiting. Stable on 40% trach collar. Tolerating tube feeds however still having residuals. Medical Exam Vital signs and Labs for Last 24 Hours: Vital Signs Temp Pulse Pulse Resp BP Pulse Ox FiO2 02/07/23 13:24 78 02/07/23 13:24 77 02/07/23 11:39 99.7 F H 94 H 22 117/68 98 02/07/23 07:55 99.8 F H 96 H 24 107/65 L 96 02/07/23 06:15 94 H 02/07/23 06:15 96 H 02/07/23 06:15 92 L 40 02/07/23 04:00 98.2 F 94 H 20 101/57 L 02/07/23 00:00 97 02/06/23 20:00 108 H 97 02/07/23 00:00 98.6 F 108 H 18 113/62 97 02/06/23 23:33 89 02/06/23 23:32 86 02/06/23 20:00 99.2 F 74 18 140/82 89 L 02/06/23 19:25 40 02/06/23 19:24 87 02/06/23 19:24 90 02/06/23 15:17 98.0 F 89 20 112/66 90 L Intake and Output 02/06/23 02/07/23 02/07/23 23:59 07:59 15:59 Intake Total 200 / 650 710 / 710 0 / 710 Output Total 0 / 625 250 / 250 Balance 200 / 25 460 / 460 0 / 460 Intake: Intake, Oral Amount 0 / 0 0 / 0 Intake, Tube Feeding Amount 160 / 160 Intake, Tube Irrigant Amount 100 / 100 Intake, Total IV Amount 450 / 450 Cefepime HCl 1 gm In 0.9 % 50 / 50 Sodium Chloride 50 ml @ 100 mls /hr IV Q12H [facility] Rx#:[id number] Levofloxacin/D5w 750 mg/150 ml 150 / 150 750 mg In 150 ml @ 100 mls/hr IV Q24H [facility] Rx#:[id number] Vancomycin/Water For Inj (Peg) 250 / 250 1.25 gm In 250 ml @ 125 mls/hr IV Q24H [facility] Rx#:[id number] Infusion Intake 200 / 200 Piperacillin/Tazo 4.5 gm In 0.9 200 / 200 % Sodium Chloride 100 ml @ 200 mls/hr IV Q6H [facility] Rx#:[id number] Output: Output, Urine Amount 0 / 575 200 / 200 Output, Gastric Drainage Amount 50 / 50 Upper Quadrant 50 / 50 Other: Number of Unmeasured Voids 0 0 0 Number of Bowel Movements 1 1 1 Weight 58.173 kg 58 kg Patient Weight 02/07/23 23:59 Weight 58 kg Laboratory Results - last 24 hr 02/06/23 19:00: WBC 11.2 H, RBC 3.68 L, Hgb 9.6 L, Hct 30.4 L, MCV 82.7, MCH 26.1 L, MCHC 31.6 L, RDW 19.4 H, Plt Count 443 H, MPV 8.0, Neut % (Auto) 77.4, Lymph % (Auto) 17.1, [place] % (Auto) 4.4, Eos % (Auto) 0.8, Baso % (Auto) 0.4, Neut # (Auto) 8.7 H, Lymph # (Auto) 1.9, [place] # (Auto) 0.5, Eos # (Auto) 0.1, Baso # (Auto) 0.0 02/06/23 19:00: Sodium 144, Potassium 3.7, Chloride 108 H, Carbon Dioxide 29, Anion Gap 10.7, BUN 19, Creatinine 0.50 L, Estimated Creat Clear 59, Estimated GFR 166, Est GFR ( Amer) 201, Glucose 94, Calcium 8.3 L, Total Bilirubin 0.7, AST 26, ALT 19, Alkaline Phosphatase 98, Total Protein 6.5, Albumin 3.1 L, Globulin 3.4 H, Albumin/Globulin Ratio 0.9 L 02/07/23 05:15: WBC 8.4, RBC 3.35 L, Hgb 8.7 L, Hct 28.3 L, MCV 84.6, MCH 26.0 L, MCHC 30.8 L, RDW 19.3 H, Plt Count 423, MPV 7.5, Neut % (Auto) 80.8 H, Lymph % (Auto) 13.6, [place] % (Auto) 4.7, Eos % (Auto) 0.7, Baso % (Auto) 0.1, Neut # (Auto) 6.8, Lymph # (Auto) 1.1, [place] # (Auto) 0.4, Eos # (Auto) 0.1, Baso # (Auto) 0.0 02/07/23 05:15: Sodium 141, Potassium 3.5, Chloride 107, Carbon Dioxide 27, Anion Gap 10.5, BUN 18, Creatinine 0.60 L, Estimated Creat Clear 60, Estimated GFR 135, Est GFR ( Amer) 163, Glucose 82, Calcium 7.7 L, Phosphorus 4.6 H, Magnesium 2.1, Total Bilirubin 0.5, AST 23, ALT 16, Alkaline Phosphatase 93, C-Reactive Protein 257.6 H, Total Protein 6.0 L, Albumin 2.8 L, Globulin 3.2, Albumin/Globulin Ratio 0.9 L I & O for Labs for Last 24 Hours: Intake & Output 02/04/23 02/05/23 02/06/23 02/07/23 22:59 22:59 23:59 23:59 Intake Total 710 / 710 Output Total 250 / 250 Balance 460 / 460 Weight 58 kg Microbiology Reports for the Last 24 Hours: Microbiology 02/05/23 23:00 Sputum - Expectorated Sputum Gram Stain - Final 02/05/23 23:00 Sp
--- NOTE | 2023-02-07 13:53 | HMH.OTEV ---
OT Inpatient Evaluation Rehab OT IP Evaluation Start: 02/07/23 10:58 Freq: ONCE Status: Active Protocol: [facility]23 [facility] (Rec: 02/07/23 13:53 [facility] [id number]) Rehab OT IP Assessment Subjective History 67 yowm adm to [facility] with significant deficits after CVA who is ns home resident and dependent for all ADLs and functional transfers at baseline. Transfers are completed with a tom lift at alf. Adm for PNA at this time, tube feeds via PEG at baseline and trach which limits all speech. He does nod head for yes/no answers to question intermittently. He also presents with chronic sacral pressure injury that has been present since well before adm. Pt has a past medical history of: Acute pulmonary edema COPD (chronic obstructive pulmonary disease) Dysphagia Elevation of levels of liver transaminase levels Essential hypertension Hemorrhagic stroke History of embolism Pneumonitis due to inhalation of other solids and liquids Subjective Pt able to not yes or no when asked questions about prior level of function. Objective Patient Orientation Patient Baseline Upper Extremity Gross ROM Sev Limitation >75% Shoulder ROM Limitations Contracture,Muscle Weakness, Muscle Tone Elbow ROM Limitations Contracture,Muscle Weakness, Muscle Tone Bed Mobility bed mobility-scooting,bed mobility - supine/sit Assist Level Total/Dependent (100%) Rehab OT IP prob,goals,plan Problems Date of Evaluation: 02/07/23 OT IP Problems Bed Mobility,Self care,Safety Rehab Potential Rehab Potential Fair Plan OT intervention Plan Bed Mobility,Self care,Safety, Therapeutic Exercise OT Plan Frequency
--- NOTE | 2023-02-07 16:31 | PC.NURSE ---
pt has been alert to name during this shift. pt remains on trach collar.LS diminished and rhonci t/o, thick yellow mucous noted from trach. pt has tube feeds at 10 ml/h with residuals being 40-60 ml. pt started on Erythromycin Ethylsuccinate for residuals today and is continuing to receive his Reglan. f/c in place with brandyn urine draining. pt is a q2 turn and oral care. wound consult done today due to wound on patients coccyx.
[2023-02-08] VITALS (10 sets, daily range): BP systolic 113–150; BP diastolic 63–92; PULSE 73–100; RESP 18–20; TEMP 36.5–37.1; O2SAT 95–99; BMI 17.7
--- NOTE | 2023-02-08 06:42 | PC.NURSE ---
NO ACUTE CHANGES SINCE PREVIOUS ASSESSMENT. PT REMAINS ON THE TRACH COLLER AND IS TOLERATING WEL.. PT HAS HAD COPIOUS AMOUNTS OF SPUTUM FROM TRACH. TUBE FEEDS ARE RUNNING AT 10ML/HRH WITH A 50ML FLUSH Q4HRS. BAG CHANGED AT 2024 ON 02/07. RESIDUALS AT 2000 WAS 60, AT MIDNIGHT RESIDUAL WAS 0ML, AND PT HAD 10ML RESIDUAL AT 0400. PT HAS BEEN TURNED Q2HRS AND TRACH CARE HAS BEEN DONE NEEDED. VSS.
[2023-02-08 07:02] LABS: Basophils % 0.2 % (0.1-2.0); Eosinophils # 0.2 K/mm3 (0.0-0.4); Eosinophils % 2.9 % (0.1-12.0); Hematocrit 29.2 % (42.0-52.0); Lymphocytes # 1.3 K/mm3 (0.7-4.5); Lymphocytes % 18.1 % (10-50); Mean Corpuscular HGB Conc 30.9 g/dL (31.8-35.4); Mean Corpuscular Hemoglobin 26.1 pg (27.0-31.2); Mean Corpuscular Volume 84.5 fl (80-94); Mean Platelet Volume 7.4 fl (7.4-10.4); Monocytes # 0.4 K/mm3 (0.1-1.0); Monocytes % 5.2 % (1.7-9.3); Neutrophils # 5.1 K/mm3 (1.8-7.8); Neutrophils % 73.6 % (37.0-80.0); Platelet Count 472 K/mm3 (142-424); Red Blood Count 3.46 M/mm3 (4.60-6.20); Red Cell Distribution Width 19.1 % (11.5-17.5)
[2023-02-08 07:10] LABS: Alanine Aminotransferase 15 U/L (12-78); Albumin Level 2.9 g/dl (3.5-5.0); Albumin/Globulin Ratio 0.9 (1.1-1.8); Alkaline Phosphatase 91 U/L (38-126); Aspartate Amino Transferase 20 U/L (17-59); Bilirubin,Total 0.5 mg/dl (0.2-1.3); Blood Urea Nitrogen 15 mg/dl (9-20); Calcium 8.1 mg/dl (8.4-10.2); Carbon Dioxide 26 mmol/L (22.0-30.0); Chloride 108 mmol/L (98-107); Creatinine Clearance Estimated 58 mL/min (50-200); Estimated Glomerular Filt Rate 166 ml/min (>60); GFR (African American) 201 ML/MIN (>60); Globulin 3.3 g/dL (1.3-3.2); Glucose 85 mg/dl (74-100); Sodium 142 mmol/L (136-145); Total Protein,Serum 6.2 g/dl (6.3-8.2)
--- NOTE | 2023-02-08 07:56 | SW/DCPLANNER ---
Addendum entered by Iesha Fisher 02/09/23 15:41: I have updated Liliana long/ [place] that this patient will return today: discharge summary has been faxed. Addendum entered by Iesha Fisher 02/08/23 11:12: I have updated Liliana long/ [place]: patient will return today. Liliana stated that no COVID swab is needed at discharge. Original Note: This patient currently resides at [facility] level of care. I will continue to update Liliana long/ [place] during hospital admission. Updated patient information will be faxed.
--- NOTE | 2023-02-08 12:58 | EXP.ACUTE.PN ---
Subjective *Date: 02/08/23 *Time: 15:50 Interval history: Patient is improved in mentation. Overall doing well. Still having significant secretions from his tracheostomy. Afebrile overnight. tolerating tube feeds at 10cc/hr. Still having residuals of 0-60 when checked. No vomiting. Stable oxygen requirement, weaned to 35% trach collar today. Patient interacts on exam with head nods and blinking. We will try mouth answers. No meaningful movement in bed. Having bowel movements. Medical Exam Vital signs and Labs for Last 24 Hours: Vital Signs Temp Pulse Pulse Resp BP Pulse Ox FiO2 02/08/23 11:36 77 02/08/23 11:36 77 02/08/23 08:00 40 02/08/23 11:07 98.7 F 100 H 18 130/68 95 02/08/23 07:27 98.5 F 92 H 18 139/86 99 02/08/23 06:13 87 02/08/23 06:13 83 02/08/23 06:13 97 40 02/08/23 04:00 98.4 F 88 20 135/76 99 02/08/23 00:00 97.7 F 83 20 113/63 99 02/08/23 00:02 80 02/08/23 00:02 80 02/07/23 20:00 40 02/07/23 20:00 97.8 F 91 H 20 126/77 100 02/07/23 19:29 89 02/07/23 19:29 89 02/07/23 19:29 97 40 02/07/23 15:30 99.0 F 86 20 127/59 L 98 02/07/23 13:24 78 02/07/23 13:24 77 Intake and Output 02/07/23 02/08/23 02/08/23 23:59 07:59 15:59 Intake Total 483 / 1193 200 / 200 Output Total 0 / 450 400 / 400 0 / 400 Balance 483 / 743 -200 / -200 0 / -200 Intake: Intake, Oral Amount 0 / 0 Intake, Tube Feeding Amount 133 / 293 100 / 100 Intake, Tube Irrigant Amount 200 / 300 100 / 100 Intake, Total IV Amount 150 / 600 Levofloxacin/D5w 750 mg/150 ml 150 / 300 750 mg In 150 ml @ 100 mls/hr IV Q24H [facility] Rx#:[id number] Output: Output, Urine Amount 0 / 400 400 / 400 0 / 400 Other: Number of Unmeasured Voids 0 0 0 Weight 56.303 kg Patient Weight 02/08/23 23:59 Weight 56.303 kg Laboratory Results - last 24 hr 02/08/23 06:20: Sodium 142, Potassium 3.0 L, Chloride 108 H, Carbon Dioxide 26, Anion Gap 11.0, BUN 15, Creatinine 0.50 L, Estimated Creat Clear 58, Estimated GFR 166, Est GFR ( Amer) 201 D, Glucose 85, Calcium 8.1 L, Total Bilirubin 0.5, AST 20, ALT 15, Alkaline Phosphatase 91, Total Protein 6.2 L, Albumin 2.9 L, Globulin 3.3 H, Albumin/Globulin Ratio 0.9 L 02/08/23 06:20: WBC 7.0, RBC 3.46 L, Hgb 9.0 L, Hct 29.2 L, MCV 84.5, MCH 26.1 L, MCHC 30.9 L, RDW 19.1 H, Plt Count 472 H, MPV 7.4, Neut % (Auto) 73.6, Lymph % (Auto) 18.1, [place] % (Auto) 5.2, Eos % (Auto) 2.9, Baso % (Auto) 0.2, Neut # (Auto) 5.1, Lymph # (Auto) 1.3, [place] # (Auto) 0.4, Eos # (Auto) 0.2, Baso # (Auto) 0.0 02/08/23 06:20: Magnesium 2.0 I & O for Labs for Last 24 Hours: Intake & Output 02/05/23 02/06/23 02/07/23 02/08/23 22:59 23:59 23:59 23:59 Intake Total 1193 / 1193 200 / 200 Output Total 450 / 450 400 / 400 Balance 743 / 743 -200 / -200 Weight 58 kg 56.303 kg Microbiology Reports for the Last 24 Hours: Microbiology 02/05/23 23:00 Sputum - Expectorated Sputum Gram Stain - Final 02/05/23 23:00 Sputum - Expectorated Sputum Sputum Culture - Preliminary Gram Negative Rods Gram Negative Rods#2 02/05/23 17:49 Urine,Catheterized Urine Culture - Final Yeast 02/05/23 17:25 Blood Blood Culture - Preliminary NO GROWTH AFTER 48 HOURS 02/05/23 17:25 Blood Blood Culture - Preliminary NO GROWTH AFTER 48 HOURS Constitutional: Present no acute distress, thin, chronically ill appearing and cooperative Comment:: Responds to questions with head nods Head: Present atraumatic and normocephalic Comment:: Tracheostomy in place, copious thin secretions that are yellow. Respiratory: Present rhonchi, crackles, diminished air movement and normal respiratory effort; Absent wheezes Cardia
--- NOTE | 2023-02-08 16:19 | DIET.NUTRFU ---
Patient continues to receive minimal amount of TF, tolerating slightly better today at 15ml/hr with 30ml residuals noted this afternoon. Goal rate is 45ml/hr to meet nutritional needs. LBM 02/07, medication regimen in place. Labs reviewed potassium low at 3.1L, KCL provided. Na 142, flush may need to be adjusted because not able to reach goal rate. He continues on reglan and erythromycin for mobility, cannot receive erythromycin bilingual teacher due to possible resistance. Plan is to return to [place] upon discharge, they are familiar with TF and wound care
--- NOTE | 2023-02-08 16:34 | PC.NURSE ---
Pt has had copious amount of secretions this shift. Trach collar @ 35%. Nutren infusing @ 20 ml/hr. Residuals 80, 30, 90. F/C draining to bedside with yellow urine with sediment. Pt has had multiple stools this shift. Call light at bedside. safety measures in place.
[2023-02-09] VITALS: BP 126/64; PULSE 87; RESP 20; TEMP 36.8; O2SAT 97; O2SAT 99
[2023-02-09 04:00] VITALS: BP 143/75; PULSE 87; RESP 20; TEMP 37; O2SAT 97; BMI 18.5
--- NOTE | 2023-02-09 05:30 | PC.NURSE ---
pt more alert this shift, trach in place with trach collar 02 at 35% fio2 at 8L, f/c to bsd, lung sounds with expiratory wheezes and rhonchi noted, pt with copious amts of secretions and sputum from trach at times, 02 sats remain 97%. no acute distress, pt alert to name only, tube feeds at 20ml/hr with 50ml flushes q4h with 60ml residual noted every 4 hours, no acutes distress or any other concerns at this time.
[2023-02-09 06:18] VITALS: PULSE 85; PULSE 87; O2SAT 94
[2023-02-09 06:22] LABS: Basophils % 0.3 % (0.1-2.0); Eosinophils # 0.1 K/mm3 (0.0-0.4); Eosinophils % 1.4 % (0.1-12.0); Hematocrit 26.8 % (42.0-52.0); Hemoglobin 8.1 g/dL (14.1-18.0); Lymphocytes # 1.7 K/mm3 (0.7-4.5); Lymphocytes % 23.4 % (10-50); Mean Corpuscular HGB Conc 30.2 g/dL (31.8-35.4); Mean Corpuscular Hemoglobin 25.4 pg (27.0-31.2); Mean Corpuscular Volume 84.2 fl (80-94); Mean Platelet Volume 7.7 fl (7.4-10.4); Monocytes # 0.4 K/mm3 (0.1-1.0); Monocytes % 4.8 % (1.7-9.3); Neutrophils # 5.1 K/mm3 (1.8-7.8); Neutrophils % 70.1 % (37.0-80.0); Platelet Count 516 K/mm3 (142-424); Red Blood Count 3.18 M/mm3 (4.60-6.20); Red Cell Distribution Width 18.7 % (11.5-17.5); White Blood Count 7.2 K/mm3 (4.8-10.8)
[2023-02-09 06:38] LABS: Alanine Aminotransferase 16 U/L (12-78); Albumin Level 2.8 g/dl (3.5-5.0); Albumin/Globulin Ratio 0.9 (1.1-1.8); Alkaline Phosphatase 86 U/L (38-126); Anion Gap 10.3 mEq/L (5-15); Aspartate Amino Transferase 21 U/L (17-59); Bilirubin,Total 0.3 mg/dl (0.2-1.3); Blood Urea Nitrogen 11 mg/dl (9-20); Calcium 7.9 mg/dl (8.4-10.2); Carbon Dioxide 25 mmol/L (22.0-30.0); Chloride 107 mmol/L (98-107); Creatinine Clearance Estimated 60 mL/min (50-200); Estimated Glomerular Filt Rate 215 ml/min (>60); GFR (African American) 260 ML/MIN (>60); Globulin 3.2 g/dL (1.3-3.2); Glucose 103 mg/dl (74-100); Potassium 3.3 mmoL/L (3.5-5.1); Sodium 139 mmol/L (136-145)
[2023-02-09 06:47] LABS: Magnesium 1.6 mg/dl (1.6-2.3)
[2023-02-09 08:00] VITALS: BP 144/62; PULSE 92; TEMP 37.1; O2SAT 95
[2023-02-09 11:31] VITALS: PULSE 87; PULSE 88
[2023-02-09 12:00] VITALS: BP 153/68; PULSE 90; RESP 18; TEMP 37.3; O2SAT 97
--- NOTE | 2023-02-09 12:13 | PC.NURSE ---
called daughter to let her know pt will be going back to [facility] today. daughter stated she wanted to speak to delmy. delmy notified, stated he will call daughter back.
--- NOTE | 2023-02-09 12:33 | DIET.NUTRFU ---
Patient's TF was increased to 20ml/hr, but still getting high residuals of 60ml when checked Q4H. Continues on reglan and erthromycin tx. Will also start scopolamine patch and mucomyst to help with secretions. Based on poor tolerance of TF, would not recommend increasing rate at this time. May need to consider outpatient sx for J-tube. Provider also plans to touch base with daughter on goals of care. When ready for discharge he will retuirn to . LBM 02/07, meds are in place. Labs reviewed non-significant. Will continue to monitor. If residuals improve domenica;l eval for incarse in TF, current TF is only providing 960kcal, 40gm protein and 332.6 free water plus 200ml flush. Will increase flush to 100ml [id number] for a totral of 932ml/day to better meet fluid needs.
--- NOTE | 2023-02-09 13:33 | EXP.DC.SUM ---
General Admission date:: 02/06/23 Discharge date: 02/09/23 HPI HPI HPI: Mr. Sanches is a 67-year-old male who is a resident of [facility]. 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 He presented to [facility] by EMS from [place] due to Fevers, Tachypnea and Tachycardia. Information for the history and physical was obtained from the patient's daughter who was at bedside. She reports that she was at the [place] when the patient became febrile, tachycardia and tacypnea, she reported copious amounts of phlegm coming from his trach site and reported that he had a lot of residual of tube feeds. She requested that he be sent to the ER for evaluation. In the ER, Cxray showed bilateral lobe consolidations with the greatest on the left. HR was 110, Temperature was 100.9. CBC and CMP were unremarkable and Covid and Flu testing were negative. The patient will be admitted with initial impression: SIRS and Pneumonia. Cultures were drawn in the ER. He has been placed on Zosyn empirically. The plan of care was discussed with the patient's daughter on admission. She verbalized understanding and agreement with the plan of care. Hospital Course Hospital Course Hospital Course: The patient is admitted to the medical floor with ongoing nutrition via his PEG tube. He was maintained on Reglan and erythromycin therapy for his identified gastroparesis. Chest imaging was concerning for aspiration. He was maintained n.p.o. for his identified chronic dysphagia. Blood cultures were acquired that identified no growth to date. Urine cultures identified yeast and sputum cultures identified gram-negative rods. He tolerated his IV antibiotic therapy with improved inflammatory markers. His white blood cell count remained normal and his hemoglobin remained stable. His oxygen requirements diminished to usual baseline with FiO2 28% and 2 L via trach. A goals of care conversation occurred with his daughter. We have recommended ongoing outpatient evaluation by GI concerning his PEG tube and possible placement of jejunostomy tube not available at our facility. With his identified improvement, he will be discharged back to his facility at [facility]. We are recommending 5 more days of PEG tube antibiotic therapy for his pneumonitis. We are recommending routine residual checks for PEG tube feeding and follow-up with GI as outpatient. I spent 35 minutes in [id number] time with the patient and nursing staff (Bhargavi LA) concerning the discharge process. We discussed the admitting diagnoses and hospital course. We discussed identified improvement and the patient/family desire to transition care back to SNF. We reviewed inpatient studies and imaging. The patient/family voiced understanding on the importance of follow-up with his primary care provider and GI specialist(s). The patient's care will be transition to [facility]. Exam Data for Last 24 hours Vital signs and Labs for Last 24 Hours: Temp Pulse Resp BP Pulse Ox FiO2 99.2 F 90 18 153/68 H 97 28 02/09/23 12:00 02/09/23 12:00 02/09/23 12:00 02/09/23 12:00 02/09/23 12:00 02/09/23 11:48 Laboratory Results - last 24 hr 02/09/23 05:15: Sodium 139, Potassium 3.3 L, Chloride 107, Carbon Dioxide 25, Anion Gap 10.3, BUN 11 D, Creatinine 0.40 L, Estimated Creat Clear 60, Estimated GFR 215, Est GFR ( Amer) 260 D, Glucose 103 H D, Calcium 7.9 L, Total Bilirubin 0.3, AST 21, ALT 16, Alkaline Phosphatase 86, Total Protein 6.0 L, Albumin 2.8 L, Globulin 3.2, Albumin/Globulin Ratio 0.9 L 02/09/23 05:15: WBC 7.2, RBC 3.18 L, Hgb 8.1 L, Hct 26.8 L, MCV 84.2, MCH 25.4 L, MCHC 30.2 L, RDW 18.7 H, Plt Count 516 H, MPV 7.7, Neut % (Auto) 70.1, Lymph % (Auto) 23.4, [place] % (Auto) 4.8, Eos % (Auto) 1.4, Baso % (Auto) 0.3, Neut # (Auto) 5.1, Lymph # (Auto) 1.7, [place] #
--- NOTE | 2023-02-09 14:40 | PC.NURSE ---
tried to call report to [facility], spoke to nurse Kenyon and she stated she would have to talk with admin before taking pt. zevtessy then called, i explained how the pt is at his baseline 02. kenyon called back and stated she spoke with RT and the MD, kenyon stated report could be given. report given, ambulance called for transport.
--- NOTE | 2023-02-10 16:00 | CARE MANAGER ---
Unable to contact patient to discuss recent discharge. Phone number listed has been disconnected.
[2023-02-11 14:21] LABS: Legionella pneumophila Urinary Negative (Negative)
[2023-02-11 17:07] LABS: Body Fluid Culture, Sterile Not indicated. (.); Organism ID Not indicated. (.); Specimen Source Urine (.); Streptococcus pneumoniae Ag Negative (Negative)
== END 2023-02-09 15:40 | DRG 177 ==
LOC: ER 19:31 → 2ND 21:08
PROVIDERS: Nurse Practitioner Family; Admitting Provider Internal Medicine Adolescent Medicine; Emergency Provider Emergency Medicine; PCP Emergency Medicine; Visit Provider Internal Medicine Adolescent Medicine
DX: J69.0 Pneumonitis due to inhalation of food and vomit (principal); E43 Unspecified severe protein-calorie malnutrition; J44.0 Chronic obstructive pulmonary disease with (acute) lower respiratory infection; Z68.1 Body mass index [BMI] 19.9 or less, adult; I69.391 Dysphagia following cerebral infarction; Z74.01 Bed confinement status; Z93.0 Tracheostomy status; K31.84 Gastroparesis; I10 Essential (primary) hypertension; Z86.73 Personal history of transient ischemic attack (TIA), and cerebral infarction without residual deficits; K59.00 Constipation, unspecified; Z93.1 Gastrostomy status
CPT/HCPCS: 36415; 70450; 71045; 80053; 81001; 82803; 83605; 83735; 84100; 84484; 85025; 86140; 87040; 87070; 87077; 87086; 87186; 87205; 87899; 94640; 94760; 94761; 97110; 97140; 97163; 97166; 99285; C9803; G0378; J0692; J1956; J2543; U0003; U0005